=== PATIENT | female | born 1970 | race Caucasian/White ===

== ENCOUNTER 2020-10-13 19:00 | Emergency (ER) | payer OTHER, SELFPAY ==
[2020-10-13 19:02] VITALS: BP 138/71; PULSE 96; RESP 14; TEMP 36.6; O2SAT 97; BMI 33.8
[2020-10-13 19:06] VITALS: BP 138/71; PULSE 96; RESP 14; TEMP 36.6; O2SAT 97
--- NOTE | 2020-10-13 19:31 | EX.ED.GENINJ ---
HPI History of Present Illness Chief Complaint: Bite Informant: patient Narrative Narrative: Patient is a 50-year-old previously healthy female who presents to the emergency department for cat bite to her right forearm. She states that this occurred yesterday. She has noticed some erythema, warmth and tenderness to the area. She went to urgent care who referred her to the emergency department. Patient has not done anything for her symptoms to this point. She denies any systemic symptoms including any fever/chills or nausea/vomiting. No streaking up the arm. She denies any history of immunocompromise state, diabetes. She does admit to smoking cigarettes. Patient is not concerned about rabies as it is her house cat. PFSH PFSH Home Medications amoxicillin-pot clavulanate [Augmentin] 1 tab PO BID 10 Days #20 tab 10/13/20 [Rx Last Taken Unknown] Allergy/AdvReac Type Severity Reaction Status Date / Time No Known Allergies Allergy Verified 10/13/20 19:02 Social History Smoking Status: Current every day smoker tobacco type: cigarettes ROS ROS ED Constitutional Constitutional ED: Denies chills or fever(s) Eyes Eyes: Denies change in vision ENT ENT ED: Denies epistaxis or rhinorrhea Cardiovascular Cardiovascular: Denies chest pain Respiratory/Chest Respiratory/Chest: Denies cough or dyspnea Gastrointestinal Gastrointestinal: Denies abdominal pain, nausea or vomiting Musculoskeletal Musculoskeletal: Denies back pain or neck pain Integumentary Reports rash Neurologic Neurologic: Denies weakness EXAM Physical Exam Const Vital Signs: 10/13/20 19:02 10/13/20 19:06 Temperature 97.9 F 97.9 F Temperature Source Temporal Temporal Pulse Rate 96 96 Respiratory Rate 14 14 Blood Pressure 138/71 H 138/71 H Blood Pressure Mean 93 93 Pulse Ox 97 97 Oxygen Delivery Method Room Air Room Air Positive well nourished and well developed General Appearance ED: well developed and NAD HEENT Reports normocephalic, head/scalp atraumatic and moist mucous membranes Eyes PERRL and EOMs intact bilaterally Neck supple Chest Wall inspection of chest normal Resp normal respiratory effort and clear to auscultation bilaterally Auscultation: Negative for rales, rhonchi or wheezes Cardio regular rate, regular rhythm and no murmurs Extremity Extremity Narrative: Right forearm has 2 puncture wound sites. There is surrounding erythema, warmth and tenderness. No fluctuating abscess present. She has full range of motion of her elbow, wrist and hand. 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 2+ radial pulse. No underlying crepitus. No streaking up the arm. Neuro no sensory deficits noted Sensorium / Orientation: alert Motor Exam: strength 5/5 throughout Psych mental status grossly normal MDM MDM MDM Narrative Medical decision making narrative: Patient presents to the ED for cat bite that occurred yesterday. This does appear to have a surrounding infection. She was referred by urgent care thinking that this would require surgical evaluation. The area of infection is very localized. She does have some tenderness in the forearm but I believe that this is related to the puncture wound sites. She has normal vital signs. No evidence of sepsis as she is not tachycardic or have a temperature. No streaking up the arm. This does appear to be very local and no underlying abscess present. I believe that this is a good candidate for oral antibiotic therapy. Will give first dose of Augmentin here and write a prescription for home. I did make an outline around the area with marker. She understands that she is to return if there is significant spreading outside of the marker or she develops streaking, fevers. She understands and is agreeable with this plan. Will discharge home in stable condition. All questions were answered. Discharge Plan Triage Chief Complaint: Bite ED Provider: Emre Nolen Dx/Rx/DC Orders Clinical Impression: Infected cat bite Instructions: ED Cat Bite Prescriptions: New amoxicillin-pot clavulanate [Augmentin] 875-125 mg tablet 1 tab PO BID 10 Days Qty: 20 RF: 0 Activity Restrictions/Additional Instructions: Please follow-up with your PCP for wound recheck and 2 days. If you develop any significant streaking past the area marked or develop systemic symptoms including fevers or chills need to return back to the emergency department immediately for reevaluation. Disposition Disposition: Home, Self Care
[2020-10-13] MEDS: Amox/Clavulanate 875 MG Tablet PO (19:36)
== END 2020-10-13 19:47 | disposition home or self-care (01) ==
LOC: ED 19:47
PROVIDERS: Emergency Provider Emergency Medicine; PCP Family Medicine
DX: S50.871A Other superficial bite of right forearm, initial encounter (principal); W55.01XA Bitten by cat, initial encounter; Y93.9 Activity, unspecified; Y92.9 Unspecified place or not applicable; F17.210 Nicotine dependence, cigarettes, uncomplicated
CPT/HCPCS: 99282

== ENCOUNTER 2020-10-14 12:25 | Inpatient (IN) | payer OTHER, SELFPAY ==
[2020-10-13 19:02] VITALS: BMI 33.8
[2020-10-14 12:26] VITALS: BP 130/64; PULSE 91; RESP 16; TEMP 36.3; O2SAT 96; BMI 33.5
--- NOTE | 2020-10-14 12:45 | EX.ED.VISEXT ---
HPI History of Present Illness Chief Complaint: Bite Detail of Chief Complaint: Cat bite to right forearm that occurred 3 days ago Informant: patient Narrative Narrative: Patient states that she was bitten by her cat 3 days ago on the right forearm. Patient is a house cat. Patient seen in the ER yesterday and started on Augmentin. Patient had the area of erythema outlined with marker and now she is noted that the erythema is starting to extend beyond the marker and she is having some lymphangitic streaking so she presents for repeat evaluation. She denies fever, chills, or sweats. Patient is not diabetic and has no real medical issues otherwise. ROS ROS ED Constitutional Constitutional ED: Reports systems reviewed and no addt'l complaints, except as documented; Denies body ache(s), change in weight or chills Eyes Eyes: Denies acute decrease in peripheral vision, change in vision, double vision or loss of vision ENT ENT ED: Reports none; Denies ear pain, lip swelling, loss taste/smell, neck pain, otalgia or sore throat Cardiovascular Cardiovascular: Reports none; Denies abdominal pain, chest pain with activity, leg edema, lightheadedness, palpitations, rapid heart rate or syncope Respiratory/Chest Respiratory/Chest: Reports none; Denies change in mental status, dry cough, dyspnea, hemoptysis, shortness of breath at rest or shortness of breath with exertion Gastrointestinal Gastrointestinal: Reports none; Denies abdominal pain, change in stool character, diarrhea, hematemesis, hematochezia, melena, rectal bleeding or vomiting Genitourinary Genitourinary ED: Reports none; Denies abdominal discomfort, anuria, dysuria, genital pain or polyuria Musculoskeletal Musculoskeletal: Reports none; Denies arthralgias, back pain, difficulty walking, extremity pain, muscle weakness or myalgias Integumentary Reports none, rash and other Details: Right forearm erythema and small pustule on the dorsal surface of the forearm ; Denies abscess Neurologic Neurologic: Reports none; Denies abnormal gait, confusion, focal weakness, frequent falls, headache(s), loss of vision, numbness, paresthesias, radicular pain, vertigo or weakness Psychiatric Psychiatric: Reports systems reviewed and no addt'l complaints, except as documented and none; Denies behavioral changes, confusion, difficulty concentrating, hallucinations, suicidal ideation, tactile hallucinations or visual hallucinations Endocrine Endocrinology: Denies none, cold intolerance, excessive sweating, fatigue or heat intolerance Hematologic/Lymphatic Hematologic/Lymphatic: Reports none; Denies anemia, easy bleeding or easy bruising Allergic/Immunologic Allergic/Immunologic ED: Denies as per HPI, none, lip swelling, mouth swelling, throat swelling, tongue swelling or hives PFSH PFSH Home Medications amoxicillin-pot clavulanate [Augmentin] 1 tab PO BID 10 Days #20 tab 10/13/20 [Rx Last Taken Unknown] Allergy/AdvReac Type Severity Reaction Status Date / Time No Known Allergies Allergy Verified 10/13/20 19:02 Social History Smoking Status: Current every day smoker tobacco type: cigarettes EXAM Physical Exam Const Vital Signs: 10/14/20 12:26 Temperature 97.3 F L Temperature Source Temporal Pulse Rate 91 Respiratory Rate 16 Blood Pressure 130/64 H Blood Pressure Mean 86 Pulse Ox 96 Oxygen Delivery Method Room Air Positive well nourished and well developed General Appearance ED: well developed and NAD HEENT Reports TM's clear and moist mucous membranes normocephalic and atraumatic; Negative for trauma or tenderness Tympanic Membrane ED: Yes TM's clear Eyes PERRL and EOMs intact bilaterally General Eye ED: Negative for pale conjunctiva or scleral icterus Neck no lymphadenopathy, supple and no JVD General: Negative for tenderness Chest Wall inspection of chest normal and palpation of chest normal Chest: Negative for tenderness Resp normal respiratory effort and clear to auscultation bilaterally Effort and Inspection: Negative for respiratory distress or pain with movement Auscultation: Negative for rhonchi, wheezes or diminished lung sounds Cardio regular rate, regular rhythm, S1 normal heart sound, S2 normal heart sound and no murmurs Peripheral Pulses: pulses 2+ throughout GI normal to inspection, nondistended, normoactive bowel sounds, soft to palpation, non-tender, non-distended and no masses Back/Spine no CVA tenderness and no thoracic nor lumbar tenderness Extremity Extremity Narrative: Evaluate forearm reveals a puncture wound to the dorsum of the forearm and 1 to the lateral aspect of the forearm. There is surrounding diffuse erythema. Area where the skin was outlined with marker does not show that the erythema has migrated beyond the margins. But there was a small area of purulent debris noted under the skin at the puncture site over the dorsum of the forearm. Patient neurovascular tact distally. Patient has small amount of lymphangitic streaking to the volar aspect of the wrist. General Extremety ED: Yes edema General Extremity: edema Neuro oriented x3, CN's II-XII intact bilaterally, no sensory deficits noted and gait normal Sensorium / Orientation: awake, alert, oriented to person, oriented to place and oriented to time Motor Exam: strength 5/5 throughout and strength abnormal Psych mental status grossly normal Skin no rashes or lesions noted and no wounds MDM MDM MDM Narrative Medical decision making narrative: IV line will be established and patient will be started on Unasyn. Basic labs ordered. Patient case will be discussed with hospitalist evaluate for admission for IV antibiotics. Discharge Plan Dx/Rx/DC Orders Clinical Impression: Cat bite, Infected cat bite Disposition Disposition: Acute Care Hospital [facility]
--- NOTE | 2020-10-14 13:07 | HP.PCM.HOS_ITS ---
HPI - General General Date of Admission: 10/14/20 Date of Service: 10/14/20 Chief Complaint: RUE cat bite, worsening despite recent oral abx start HPI Narrative The patient is a 50 y/o F w/ PMHx: Obesity, Tobacco use, Hx EtOH sober now x 10 years who presents to the [facility] [place] ED on 10/14/20 with history of recent RUE distal volar forearm cat bite, specifically her own cat which is an indoor cat the Tuesday prior to current presentation with urgent care evaluation with at that time referral to the ED with initiation of Augmentin and cellulitic outline performed following her discharge with recommendation to return if any redness or streaking outside of that region or onset of fevers despite antibiotic therapy which unfortunately did occur with PCP evaluation on day of ED presentation currently with referral given worsened appearance. Patient notes the area is very tender, worse with palpation, tentative 10, sharp with palpation otherwise dull aching. Patient did have a small pustule and this drained minimal material when lanced by an 18-gauge needle per the ED physician upon his evaluation. In the ED patient was administered Unasyn therapy. Work- up in the ED included T 97.3, heart rate 91, BP 130/64, respiratory rate 16, 96% on room air, CBC with WC 11.9, hemoglobin 14.2, platelet 390 with left shift, BMP pending upon requested evaluation of patient. In the ED patient ministered IV Unasyn therapy. PFSH Medical History Carpal tunnel syndrome, bilateral History of ETOH abuse Obesity Tobacco use Home Medications amoxicillin-pot clavulanate [Augmentin] 1 tab PO BID 10 Days #20 tab 10/13/20 [Rx Last Taken Unknown] Allergy/AdvReac Type Severity Reaction Status Date / Time No Known Allergies Allergy Verified 10/13/20 19:02 Family History (Updated 10/14/20 @ 13:[address] Maggie Crooks MD) Mother Crohn's disease Father Colon cancer, Onset Age: 55 Diagnosed 55 years old, age 56. Surgical History (Updated 10/14/20 @ 13:[address] Maggie Crooks MD) History of hysterectomy S/p bilateral carpal tunnel release Social History (Updated 10/14/20 @ 13:[address] Maggie Crooks MD) household members: none Smoking Status: Current every day smoker tobacco type: cigarettes Smoking packs per day: 1 Smoking cigarettes per day: 20.0 Years smoked: 38 Smoking pack-years: 38.00 alcohol intake: former details: Patient with EtOH abuse history, sober now x 10 years. substance use type: does not use ROS ROS Narrative Admission Review of Systems: CONSTITUTIONAL: No weight loss, fever, chills, + weakness or fatigue. HEENT: Eyes: No visual loss, blurred vision, double vision or yellow sclerae. Ears, Nose, Throat: No hearing loss, sneezing, congestion, runny nose or sore throat. SKIN: + RUE w/ cellulitis, cat bite. CARDIOVASCULAR: No chest pain, chest pressure or chest discomfort, palpitations, edema, orthopnea, syncopal events. RESPIRATORY: No shortness of breath, cough or sputum, wheezing, hemoptysis. GASTROINTESTINAL: No anorexia, nausea, vomiting or diarrhea, abdominal pain, melena, BRBPR. GENITOURINARY: No dysuria, frequency, urgency or retention. NEUROLOGICAL: No headache, dizziness, syncope, paralysis, ataxia, numbness or tingling in the extremities, focal weakness, change in bowel or bladder control, seizure. MUSCULOSKELETAL: + muscle, back pain, joint pain or stiffness. HEMATOLOGIC: No anemia, bleeding or bruising. LYMPHATICS: No enlarged nodes. No history of splenectomy. PSYCHIATRIC: No history of depression or anxiety. ENDOCRINOLOGIC: No reports of sweating, cold or heat intolerance. No polyuria or polydipsia. ALLERGIES: No history of asthma, hives, eczema or rhinitis. Vital Signs Vital Signs Vital Signs: 10/14/20 12:26 Temperature 97.3 F L Temperature Source Temporal Pulse Rate 91 Respiratory Rate 16 Blood Pressure 130/64 H Blood Pressure Mean 86 Pulse Ox 96 Oxygen Delivery Method Room Air Weight Weight: 234 lb Body Mass Index (BMI) 33.5 Physical Exam Narrative Physical Examination: General: Awake, alert, oriented x 3 and cooperative, seated upright in the ED bed in no apparent distress, notable discomfort with palpation RUE. Skin: Normal color, normal turgor, no icterus, no cyanosis except two evidence RUE volar forearm puncture castillo, some fluctuance, no drainage, very TTP. HEENT: AT/NC, EOMI, PERRLA, MMM, no carotid bruits or JVD noted. Lungs: CTA bilaterally, moderate effort, mild decrease BL bases, no rales, ronchi or wheezing. Heart: Regular rate and rhythm; no gallop, rub audible. Abdomen: Soft, obese, NTTP, ND, normal BS, no HSM. Extremities: No cyanosis, clubbing, or edema except focal region, RUE wrist near the bite, see skin. Neurological: Patient awake, alert, oriented as noted, cognitive function intact; pupils equally reactive to light and accommodation, cranial nerves II-XI I grossly normal, moving all 4 extremities although limited RUE given pain with movement, no focal deficits, strength preserved except reduced RUE secondary to acute pain, infection. Psychiatric: Affect appears fatigued, tearful when she is being admitted as she had planned to fly to [place] on to help her daughter, no history of depressive or anxiety feelings. Results Lab / Micro Data Result Diagrams: 10/14/20 13:14 10/14/20 13:14 Assessment & Plan Assessment/Plan (1) Infected cat bite: QUALIFIERS: Encounter type: subsequent encounter Qualified Code(s): W55.01XD - Bitten by cat, subsequent encounter PLAN: The patient is a 50 y/o F w/ PMHx: Obesity, Tobacco use, Hx EtOH sob er now x 10 years who presents to the [facility] [place] ED on 10/14/20 with history of recent RUE distal volar forearm cat bite, specifically her own cat which is an indoor cat the Tuesday prior to current presentation with urgent care evaluation with at that time referral to the ED with initiation of Augmentin and cellulitic outline performed following her discharge which unfortunately worsened prompting return. 1. RUE Infected Cat Bite with resulting Extremity Cellulitis, concern for developing abscess: Will admit to [facility], maintain on IV Unasyn, will obtain Wound Cx, will obtain Wound MRSA PCR if onset notable drainage, currently stopped after ED evaluation but some concern for coalescent regions, plan repeat CBC in AM, continue affected extremity elevation above heart when seated and in bed, monitor erythema outline with VS checks, wound RN consultation, dressing changes and given concerns will request plastic surgery consultation with potentially imaging pending discussion with her service. 2. History of prior alcohol abuse: Patient with history of alcohol abuse, sober [id number], encouraged continued sobriety. 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 3. Tobacco Abuse: Encouraged cessation, inpatient consultation per RT, NR if desired. 4. Obesity: Weight loss and lifestyle changes encouraged. 5. DVT prophylaxis: SCDs, Lovenox. Charges/Coding Visit Charges Inpatient E&M: 74001 Init Hosp L3
[2020-10-14 13:23] LABS: Absolute Neutrophil Count 7.9 X10^3/uL (2.0-7.7); Basophil# 0.05 X10^3/uL; Basophil% 0.4 % (0-1); Eosinophil# 0.22 X10^3/uL; Eosinophils% 1.9 % (0-5); Hematocrit 44.1 % (37-47); Hemoglobin 14.2 g/dL (12.0-15.0); Lymphocyte % 22.7 % (19-41); Mean Corp Hgb Conc 32.2 g/dL (32-36); Mean Corpuscular Hgb 28.1 pg (27.0-32.0); Mean Corpuscular Volume 87.2 fL (81-99); Mean Platelet Vol. 8.9 fl (6.2-12.0); Monocyte# 0.91 X10^3/uL; Monocyte% 7.7 % (0-10); NRBC Flagged by Analyzer 0 % (0-5); Neutrophil # 7.91 X10^3/uL (2.7-7.7); Neutrophil % 66.6 % (47-70); Platelet Count 390 K/mm3 (150-450); RBC Distribution Width CV 13.9 % (11.6-14.6); RBC Distribution Width SD 43.5 fl (35.1-43.9); Red Blood Count 5.06 M/mm3 (4.2-5.4); White Blood Count 11.9 K/mm3 (4.4-11.0)
[2020-10-14 13:25] VITALS: BP 130/64; PULSE 91; RESP 16; TEMP 36.3; O2SAT 96
[2020-10-14 13:32] LABS: Anion Gap 2 (5-15); BUN 12 mg/dL (7-18); BUN/Creat Ratio 11.1 RATIO (10-20); Calcium,Total 9.2 mg/dL (8.5-10.1); Chloride 107 mmol/L (98-107); Creatinine, Serum 1.08 mg/dL (0.55-1.02); EST Glomerular Filtration Rate 57 mL/min (>60); Est Glom Filt Rate - Afr Amer 69 mL/min (>60); Estimated Creatinine Clearance 66.64 ml/min; Glucose 108 mg/dL (74-106); Potassium 4.2 mmol/L (3.5-5.1); Sodium Level 139 mmol/L (136-145)
[2020-10-14 14:27] VITALS: RESP 18; BMI 33.5
[2020-10-14] MEDS: 0.9% Normal Saline 1,000 ML 100 ML IV (14:49)
[2020-10-14 14:59] LABS: M R Staph aureus DNA By PCR Negative (Negative); Probe Check PASS; Specimen Processing Control PASS; Staph aureus DNA By PCR NEGATIVE (Negative)
[2020-10-14 15:03] VITALS: BP 125/71; PULSE 79; RESP 18; TEMP 36.9; O2SAT 100
[2020-10-14 17:26] VITALS: O2SAT 94
--- NOTE | 2020-10-14 17:44 | CON.PCM_ITS ---
Assessment & Plan Assessment/Plan (1) Cat bite: (2) Open wound of right forearm due to cat bite: (3) Abscess of forearm, right: (4) Smoker: PLAN: Patient has a cat bite that failed outpatient therapy with po Augmentin. She was admitted and started on Unasyn. Will continue that. Despite the IV antibiotics, the redness has lessened but is persistent. The cat bite puncture wounds are quite tender. Recommend operative intervention with surgical preparation dorsal radial aspect and dorsal ulnar aspect mid right forearm with incision and drainage and excisional debridement of the cat bite wound infection abscess. Tissue will be sent to Pathology for analysis to rule out carcinoma and to Microbiology for culture. A positive culture belinda necessitate antibiotic therapy. Wound care will be with the VAC or with daily Dakin's dressing changes. Surgery will be under general anesthesia and tourniquet control. Will plan on Surgery for tomorrow. After discharge, will followup at the [facility]. If there is a plateau in the healing process, can proceed with delayed closure with skin grafting. Patient was informed of the risks and complications of the procedure including alternatives to surgery. These were discussed with the patient personally. Patient voices understanding and wishes to proceed. Some of the risks and complications that were discussed included but were not inclusive of failure to diagnose including symptom relief, pain, infection, numbness, stiffness, loss of digit, RSD (CRPS), need for further surgery, contracture, and wound healing problems. Encouraged patient to stop smoking as it may have deleterious effects on wound healing. After surgery, will encourage range of motion exercises to minimize stiffness. If stiffness develops, will set her up with OT for range of motion exercises, strengthening, and edema management. We discussed the current risks associated with COVID-19. While it is understood that there is a community spread of COVID-19, the risk of es COVID-19 while at [facility] ([facility]) is very low; however, the risk cannot be completely mitigated because of the community spread of the disease. We discussed in detail the risk of exposure to and/or potential harm posed by the COVID-19 virus with having a surgery/procedure at this time versus the risk of delaying the surgery/procedure. It is not possible to know either the risk of delaying the surgery or procedure or chance of getting an infection with perfect accuracy, but a joint decision was made to proceed at this time with the scheduled surgery/procedure as indicated on the consent form. Patient was notified that we will need to comply with any screening or testing [facility] wishes to perform or that surgery may be delayed for any positive results. HPI Consult Data Date of Consult: 10/16/20 PCP / Referring MD: Dr. Ruben Vasques MD Attending Care Provider: Dr. Maggie Crooks MD SOCIAL WELFARE RESEARCH WORKER: Dr. Herrera. HPI Narrative Reason for Consultation: cat bite wound infection dorsum right forearm. HPI Narrative: The patient is a 50 year old woman who was admitted for a worsening cat bite right forearm that she sustained on 10/12/20. It is her own cat which is an indoor cat. Initially she went to Urgent Care and Augmentin was prescribed. She noticed increasing pain, and redness, and swelling over the next 24 hours which prompted her visit to the ED for failed outpatient therapy. She was admitted and started on Unasyn. Her WBC was 11.9. She has persistent pain and redness over the cat bite wounds (dorsal radial aspect and dorsal ulnar aspect mid right forearm), and I was asked to evaluate this patient for surgical options for treatment. [facility] Medical History Abscess of forearm, right Carpal tunnel syndrome, bilateral Cat bite Extensor tenosynovitis of right wrist History of ETOH abuse Obesity Open wound of right forearm due to cat bite Tobacco use Home Medications amoxicillin-pot clavulanate [Augmentin] 1 tab PO BID 10 Days #20 tab 10/13/20 [Rx Last Taken Unknown] Allergy/AdvReac Type Severity Reaction Status Date / Time No Known Allergies Allergy Verified 10/13/20 19:02 Family History (Updated 10/14/20 @ 13:[address] Maggie Crooks MD) Mother Crohn's disease Father Colon cancer, Onset Age: 55 Diagnosed 55 years old, age 56. Surgical History History of hysterectomy S/p bilateral carpal tunnel release Social History (Updated 10/14/20 @ 13:[address] Maggie Crooks MD) household members: none Smoking Status: Current every day smoker tobacco type: cigarettes Smoking packs per day: 1 Smoking cigarettes per day: 20.0 Years smoked: 38 Smoking pack-years: 38.00 alcohol intake: former details: Patient with EtOH abuse history, sober now x 10 years. substance use type: does not use ROS ROS Narrative CONSTITUTIONAL: No weight loss, fever, chills, + weakness or fatigue. HEENT: Eyes: No visual loss, blurred vision, double vision or yellow sclerae. Ears, Nose, Throat: No hearing loss, sneezing, congestion, runny nose or sore throat. SKIN: + RUE w/ cellulitis, cat bite. CARDIOVASCULAR: No chest pain, chest pressure or chest discomfort, palpitations, edema, orthopnea, syncopal events. RESPIRATORY: No shortness of breath, cough or sputum, wheezing, hemoptysis. GASTROINTESTINAL: No anorexia, nausea, vomiting or diarrhea, abdominal pain, melena, BRBPR. GENITOURINARY: No dysuria, frequency, urgency or retention. NEUROLOGICAL: No headache, dizziness, syncope, paralysis, ataxia, numbness or tingling in the extremities, focal weakness, change in bowel or bladder control, seizure. MUSCULOSKELETAL: + muscle, back pain, joint pain or stiffness. HEMATOLOGIC: No anemia, bleeding or bruising. LYMPHATICS: No enlarged nodes. No history of splenectomy. PSYCHIATRIC: No history of depression or anxiety. ENDOCRINOLOGIC: No reports of sweating, cold or heat intolerance. No polyuria or polydipsia. ALLERGIES: No history of asthma, hives, eczema or rhinitis. Physical Exam Narrative General: Awake, alert. Skin: Normal color, normal turgor, no icterus, no cyanosis except two evidence RUE volar forearm puncture castillo, some fluctuance, no drainage, very TTP. HEENT: EOMI, PERRLA. Lungs: Clear to auscultation. Heart: Regular rate and rhythm. Abdomen: Soft, nondistended Extremities: No clubbing or cyanosis. There is mild edema noted on right forearm. There are two cat bite puncture wounds on the dorsal radial aspect and dorsal ulnar aspect mid right forearm. There is tenderness to palpation around the cat bite wounds and there is surrounding redness. No purulent drainage no praneeth. Fingers are warm with good capillary refill. Radial pulses are palpable. No axillary adenopathy. Tenderness with thumb abduction and extension. Opposition is ok. Extension of fingers against resistance intact. Mild tenderness noted. Minimal wrist dorsiflexion. Neurological: Cranial nerves II-XII grossly normal. Psychiatric: Affect appears fatigued, tearful when she is being admitted as she had planned to fly to [place] on to help her daughter, no history of depressive or anxiety feelings. Lab / Micro Data Result Diagrams: 10/16/20 05:25 10/16/20 05:25 Labs: Laboratory Results - last 24 hr 10/14/20 13:14: WBC 11.9 H, RBC 5.06, Hgb 14.2, Hct 44.1, MCV 87.2, MCH 28.1, MCHC 32.2, RDW Std Deviation 43.5, RDW Coeff of Winnie 13.9, Plt Count 390, MPV 8.9, Immature Gran % (Auto) 0.700, Neut % (Auto) 66.6, Lymph % (Auto) 22.7, Wright % (Auto) 7.7, Eos % (Auto) 1.9, Baso % (Auto) 0.4, Absolute Neuts (auto) 7.9 H, Absolute Lymphs (auto) 2.70, Nucleated RBC % 0 10/14/20 13:14: Sodium 139, Potassium 4.2, Chloride 107, Carbon Dioxide 30.0, Anion Gap 2 L, BUN 12, Creatinine 1.08 H, Estim Creat Clear Calc 66.64, Est GFR (MDRD) Af Amer 69, Est GFR (MDRD) Non-Af 57 L, BUN/Creatinine Ratio 11.1, Glucose 108 H, Calcium 9.2 10/14/20 13:38: S.aureus Protein A PCR NEGATIVE, MRSA (PCR) Negative Micro: Microbiology 10/14/20 13:38 Bite, Cat Gram Stain - Final Procedure Criteria Type of Procedure Procedure Type: Elective Elective Risks - COVID COVID Risk Discussion: The surgeon/proceduralist and patient have discussed in detail the risk of exposure to and/or potential harm posed by the COVID-19 virus with having a surgery/procedure at this time versus the risk of delaying the surgery/procedure. It is not possible to know either the risk of delaying the surgery or procedure or chance of getting an infection with perfect accuracy, but a joint decision was made between the patient and the surgeon/proceduralist to proceed at this time with the scheduled surgery/procedure as indicated on the consent form. Charges/Coding Visit Charges Inpatient E&M: 91039 Init Hosp L2 (ICD-10 - W55.01xA, S51.851A, L02.413, F17.200)
[2020-10-14 21:00] VITALS: BP 121/68; PULSE 89; RESP 18; TEMP 36.9; O2SAT 94
[2020-10-15] VITALS (17 sets, daily range): BP systolic 93–135; BP diastolic 51–92; PULSE 68–96; RESP 16–18; TEMP 36.6–37.4; O2SAT 85–100; BMI 33.6
[2020-10-15] MEDS: 0.9% Normal Saline 1,000 ML 100 ML IV ×3 (01:45→18:19)
[2020-10-15 06:07] LABS: Absolute Lymphocyte Count 3.45 X10^3/uL (0.83-4.51); Absolute Neutrophil Count 4.6 X10^3/uL (2.0-7.7); Basophil% 1.1 % (0-1); Eosinophils% 3.2 % (0-5); Hematocrit 45.6 % (37-47); Hemoglobin 13.4 g/dL (12.0-15.0); Lymphocyte # 3.45 X10^3/ul (0.83-4.51); Lymphocyte % 36.5 % (19-41); Mean Corp Hgb Conc 29.4 g/dL (32-36); Mean Corpuscular Hgb 28.2 pg (27.0-32.0); Mean Corpuscular Volume 95.8 fL (81-99); Mean Platelet Vol. 8.9 fl (6.2-12.0); Monocyte# 0.93 X10^3/uL; Monocyte% 9.8 % (0-10); NRBC Flagged by Analyzer 0 % (0-5); Neutrophil # 4.61 X10^3/uL (2.7-7.7); Neutrophil % 48.7 % (47-70); Platelet Count 296 K/mm3 (150-450); RBC Distribution Width CV 13.9 % (11.6-14.6); RBC Distribution Width SD 49.1 fl (35.1-43.9); Red Blood Count 4.76 M/mm3 (4.2-5.4); White Blood Count 9.5 K/mm3 (4.4-11.0)
--- NOTE | 2020-10-15 06:20 | PCM.PN.HOSP ---
Subjective Subjective Patient with no acute events overnight per self and per nursing report. She does have ongoing tenderness to the right forearm region and although the cellulitic outlined region has lessened and improved in appearance she still does have some streaking and some focal fluctuant regions at the focal bite castillo. Patient was evaluated by plastic surgery the day prior and did discuss patient status this a.m. with planned reevaluation and possible or needs today. Discussed this with patient and she was transitioned n.p.o. status to be cautious. Patient denies fevers, chills, nausea, emesis, abdominal pain, chest pain or dyspnea. Objective Data Objective Data Vital Signs: Vital Signs Temp Pulse Resp BP Pulse Ox 97.8 F 73 16 93/68 96 10/15/20 05:00 10/15/20 05:00 10/15/20 05:00 10/15/20 05:00 10/15/20 05:00 Oxygen Delivery Method Room Air Weight: 234 lb Body Mass Index (BMI) 33.5 Intake & Output: Intake and Output for Last 24 Hours 10/13/20 10/14/20 10/15/20 23:59 23:59 23:59 Intake Total 1382.33 / 1382.33 965.67 / 965.67 Balance 1382.33 / 1382.33 965.67 / 965.67 Lab / Micro Data Result Diagrams: 10/15/20 05:40 10/15/20 05:40 Labs: Laboratory Results - last 24 hr 10/14/20 13:14: WBC 11.9 H, RBC 5.06, Hgb 14.2, Hct 44.1, MCV 87.2, MCH 28.1, MCHC 32.2, RDW Std Deviation 43.5, RDW Coeff of Winnie 13.9, Plt Count 390, MPV 8.9, Immature Gran % (Auto) 0.700, Neut % (Auto) 66.6, Lymph % (Auto) 22.7, Inyo % (Auto) 7.7, Eos % (Auto) 1.9, Baso % (Auto) 0.4, Absolute Neuts (auto) 7.9 H, Absolute Lymphs (auto) 2.70, Nucleated RBC % 0 10/14/20 13:14: Sodium 139, Potassium 4.2, Chloride 107, Carbon Dioxide 30.0, Anion Gap 2 L, BUN 12, Creatinine 1.08 H, Estim Creat Clear Calc 66.64, Est GFR (MDRD) Af Amer 69, Est GFR (MDRD) Non-Af 57 L, BUN/Creatinine Ratio 11.1, Glucose 108 H, Calcium 9.2 10/14/20 13:38: S.aureus Protein A PCR NEGATIVE, MRSA (PCR) Negative 10/15/20 05:40: WBC 9.5, RBC 4.76, Hgb 13.4, Hct 45.6, MCV 95.8 D, MCH 28.2, MCHC 29.4 L D, RDW Std Deviation 49.1 H, RDW Coeff of Winnie 13.9, Plt Count 296, MPV 8.9, Immature Gran % (Auto) 0.700, Neut % (Auto) 48.7, Lymph % (Auto) 36.5, Inyo % (Auto) 9.8, Eos % (Auto) 3.2, Baso % (Auto) 1.1 H, Absolute Neuts (auto) 4.6, Absolute Lymphs (auto) 3.45, Nucleated RBC % 0 Micro: Microbiology 10/14/20 13:38 Bite, Cat Gram Stain - Final Physical Exam Narrative Physical Examination: General: Awake, alert, oriented x 3 and cooperative, seated upright in the MS bed, uncomfortable with any movement or palpation to the right upper extremity. Skin: Normal color, normal turgor, no icterus, no cyanosis except two evidence RUE volar forearm puncture castillo, increased induration and fluctuance at these regions, but no drainage, cellulitis in the outlined region has lessened but still some streaking, ongoing severe tenderness to palpation. HEENT: AT/NC, EOMI, PERRLA, mildly dry MM. Lungs: CTA bilaterally, moderate effort, mild decrease BL bases, no rales, ronchi or wheezing. Heart: Regular rate and rhythm; no gallop, rub audible. Abdomen: Soft, obese, NTTP, ND, normal BS. Extremities: No cyanosis, clubbing, or edema except focal region, RUE wrist near the bite, see skin. Neurological: Patient awake, alert, oriented as noted, cognitive function intact; pupils equally reactive to light and accommodation, cranial nerves II-XII grossly normal, moving all 4 extremities although limited RUE given pain with movement, no focal deficits, strength preserved except reduced RUE secondary to acute pain, infection. Psychiatric: Affect appears fatigued, no apparent depressive or anxiety feelings. Assessment & Plan Assessment/Plan (1) Infected cat bite: QUALIFIERS: Encounter type: subsequent encounter Qualified Code(s): W55.01XD - Bitten by cat, subsequent encounter PLAN: The patient is a 50 y/o F w/ PMHx: Obesity, Tobacco use, Hx EtOH sober now x 10 years who presents to the [facility] ED on 10/14/20 with history of recent RUE distal volar forearm cat bite, specifically her own cat which is an indoor cat the Tuesday prior to current presentation with urgent care evaluation with at that time referral to the ED with initiation of Augmentin and cellulitic outline performed following her discharge which unfortunately worsened prompting return. 1. RUE Infected Cat Bite with resulting Extremity Cellulitis, concern for developing abscess: Patient admitted to the medical surgical floor, maintained on IV Unasyn, will continue right upper extremity elevation above heart, erythema has been lessening but streaking noted and coalescing regions therefore plastic surgery consulted and following, possible 10/15/2020 OR, currently n.p.o. status, continue judicious IV fluids, as needed oral and IV pain regimen as well as antiemetics as needed. High suspicion that patient will need to progress to OR today. 2. History of prior alcohol abuse: Patient with history of alcohol abuse, sober [id number], encouraged continued sobriety. 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 3. Tobacco Abuse: Encouraged cessation, inpatient consultation per RT, NR if desired. 4. Obesity: Weight loss and lifestyle changes encouraged. 5. DVT prophylaxis: SCDs, Lovenox. Charges/Coding Visit Charges Inpatient E&M: 46646 Subs Hosp L2
[2020-10-15 07:01] LABS: ALB/GLOB Ratio 0.8 RATIO (0.9-2.4); AST(SGOT) 15 U/L (15-37); Alanine Aminotransfer ALT/SGPT 21 U/L (13-56); Albumin, Serum 3.1 g/dL (3.2-5.0); Alkaline Phosphatase 101 U/L (45-117); Anion Gap 7 (5-15); BUN 11 mg/dL (7-18); BUN/Creat Ratio 12.4 RATIO (10-20); Calcium,Total 8.5 mg/dL (8.5-10.1); Chloride 112 mmol/L (98-107); Creatinine, Serum 0.89 mg/dL (0.55-1.02); EST Glomerular Filtration Rate 71 mL/min (>60); Est Glom Filt Rate - Afr Amer 86 mL/min (>60); Estimated Creatinine Clearance 80.87 ml/min; Globulin 3.8 g/dL (2.2-4.2); Glucose 84 mg/dL (74-106); Potassium 4.1 mmol/L (3.5-5.1); Protein, Total 6.9 g/dL (6.4-8.2); Sodium Level 138 mmol/L (136-145)
--- NOTE | 2020-10-15 09:34 | EKG12_ITS ---
Test Reason : PRE OP Blood Pressure : / mmHG Vent. Rate : 073 BPM Atrial Rate : 073 BPM P-R Int : 148 ms QRS Dur : 076 ms QT Int : 388 ms P-R-T Axes : 036 042 024 degrees QTc Int : 427 ms Normal sinus rhythm Low voltage QRS Borderline ECG When compared with ECG of 16-MAY-2012 09:05, No significant change was found Confirmed by NIKKI MORRIS, RU ([id number]), state editor BERNARDA EDWARDS ([id number]) on 10/20/2020 11:55:39 AM Referred By: GÉNESIS Confirmed By:RU JORDAN MD
--- NOTE | 2020-10-15 10:10 | CASEMGMT ---
RN MAMADOU SECONDARY ENGLISH TEACHER CM to room to meet with patient for initial transition planning/care coordination assessment. RN MAMADOU introduced self and role at [facility]. Pt voices understanding and consents to assessment at this time. Pt sitting up in bed in no distress at this time. Pt is A/O at this time and answers all questions appropriately. Care providers, pharmacy, and demographics verified/updated at this time. PCP: Dr Vasques Specialists: none Preferred Pharmacy: [facility] Insurance: MMO Prescription Benefit: Yes Living Will/HPOA: Pt does not currently have LW/HCPOA and declines info at this time. Pt made aware that she can contact SW as an out-pt and make appt in the future if she decides he would like to talk with someone about this or would like to utilize [facility] social work for advanced directive completion. Given [employer] card with information and contact number. Pt expresses understanding. LNOK: SisterMary Carmen. 2 adult children Living Arrangements: Lives alone. Independent. Sister and other family live nearby and able to help if needed. She states they would be able to assist w/dressing changes if needed. Transportation: Pt states drives self and states no transportation concerns at this time. DME: Denies using any DME and denies needs. HHC/SNF: No history of either. No needs identified. Pt wishes to return home and states has no concerns with going home at time of discharge. CM to follow for any discharge planning/needs. Pt voices no concerns/needs at this time. Advised pt to ask for CM if any questions/concerns/needs arise. Voices understanding. PLAN: Home w/family support and discharge plans in place. Jono NOEL RN, CM
--- NOTE | 2020-10-15 11:25 | DEB_PTH ---
PATIENT: MADELAINE ALBERTO LOC: MS3 U#:[id number] AGE/SX: 50/F [place]OM[place] [facility] RE10/14/[address]: Dr. Maggie Crooks MD : 1970 BED: 1 DIS: 10/17/2020 SPEC #: [id number] RECD: 10/15/20 14:25 STATUS: ISABEL RE #: [id number] MARYBETH: 10/15/20 11:[address]: Wang Herrera DEPT: SURGICAL PATHOLOGY RECD BY: Jessica Manning ENTERED: 10/16/20 08:23 SP TYPE: SNOW TISS OTHR DR: MD Dr. Wang Galvan MD Dr. William Lago, MD Tissues: Soft tissues, NOS Procedures: Surgery Specimen Level III Comments: @ Ordering doctor for SUIII edited from to @ by RGOOD at 10/16/20 0941 @ Submitting doctor edited from to @ by RGOOD at 10/16/20 0941 HEADER OPERATION: Incision, drainage cat bite, forearm PRE-OP DIAGNOSIS: Infected cat bite TISSUE SUBMITTED: Debrided tissue right forearm cat bite MICROSCOPIC DIAGNOSIS Skin and soft tissue of right forearm, biopsy: Ulceration with associated acute and chronic inflammation and granulation. Microabscess formation. AM:hemant 10/17/2020 MICROSCOPIC DESCRIPTION Slides are reviewed. GROSS DESCRIPTION Received in fixative is one container labeled with the patient's name and designated debrided tissue right forearm, cat bite. The specimen consists of two pieces of skin with underlying tissue that in aggregate measure 2 x 1.5 x 0.5 cm. Also present in the container are two detached pieces of griffin-yellow adipose tissue measuring in aggregate 1 x 0.5 x 0.2 cm. The larger skin piece is bisected. The entire specimen is submitted in one cassette. / SJ:hemant 10/16/20 TC:2 CPT: 70613
[2020-10-15] MEDS: Lidocaine 1%/Epi 1:200 (30ml) 30 ML AMPUL (13:04)
--- NOTE | 2020-10-15 13:46 | OP.PCM_ITS ---
Problems Associated Problem List Diagnoses (1) Cat bite: (2) Open wound of right forearm due to cat bite: (3) Abscess of forearm, right: (4) Extensor tenosynovitis of right wrist: (5) Smoker: Report of Operation Date of Procedure: 10/15/20 Pre-Operative Diagnosis: 1. Cat bite wound infection abscess dorsal radial aspect and dorsal ulnar aspect mid right forearm. 2. Smoker. Post-Operative Diagnosis: 1. Cat bite wound infection abscess dorsal radial aspect and dorsal ulnar aspect mid right forearm. 2. Extensor tenosynovitis compartment I distal right forearm at wrist (abductor pollicis longus tendon and extensor pollicis brevis tendon). 23Smoker. Surgery/Procedure Performed:: 1. Surgical preparation dorsal radial aspect and dorsal ulnar aspect mid right forearm with incision and drainage and excisional debridement cat bite wounds infection abscess. 2. Extensor tenosynovectomy for tenosynovitis compartment I distal right forearm at wrist (abductor pollicis longus tendon and extensor pollicis brevis tendon). Description of Surgical Findings:: The patient is a 50 year old woman who was admitted for a worsening cat bite right forearm that she sustained on 10/12/20. It is her own cat which is an indoor cat. Initially she went to Urgent Care and Augmentin was prescribed. She noticed increasing pain, and redness, and swelling over the next 24 hours which prompted her visit to the ED for failed outpatient therapy. She was admitted and started on Unasyn. Her WBC was 11.9. She has persistent pain and redness over the cat bite wounds (dorsal radial aspect and dorsal ulnar aspect mid right forearm), and I was asked to evaluate this patient for surgical options for treatment. Patient was informed of the risks and complications of the procedure including alternatives to surgery. These were discussed with the patient personally. Patient voices understanding and wishes to proceed. Some of the risks and complications that were discussed included but were not inclusive of failure to diagnose including symptom relief, pain, infection, numbness, stiffness, loss of digit, RSD (CRPS), need for further surgery, contracture, and wound healing problems. Encouraged patient to stop smoking as it may have deleterious effects on wound healing. Total tourniquet time - 29 minutes. Size of defect dorsal ulnar aspect right forearm - 2.5 x 1.5 x 1 cm. Size of defect dorsal radial aspect right forearm - 3 x 2 x 1 cm. Compartment II (extensor carpi radialis longus tendon and extensor carpi radialis brevis tendon) was ok. Compartment V (extensor digiti minimi tendon) was ok. Surgeon: Wang Herrera director special education: None Type of Anesthesia: General Specimen's removed: Cat bite wound abscess to Pathology and Microbiology. Drains: None. Estimated Blood Loss (mL): 5 ml. Description of Procedure: Patient was taken to OR in supine position and was placed under general anesthesia. The right upper extremity was prepped and draped in the usual fashion. A tourniquet was placed on the arm. SCD's were placed for DVT prophylaxis. Perioperative antibiotics were given intravenously. Using xylocaine with epinephrine, the cat bite wounds (dorsal radial aspect and dorsal ulnar aspect mid right forearm) were infiltrated for postoperative pain relief. I elevated the right upper extremity and loosely compressed it with a towel as the tourniquet was elevated to 250 mmHg. I didn't use an Esmarch bandage because of concern about spreading the infection. I proceeded with an incision and drainage around both cat bite wounds. A lot of fat necrosis was seen in the wounds. Small amount of pus was seen. The wound extended down to the tendons. The radial wound extended down to compartment I involving the abductor pollicis longus tendon and the extensor pollicis brevis tendon. There was tenosynovitis present involving compartment I. Exudate was also present. I extended the incision distally to get exposure to the tendon sheath at the wrist. I irrigated copiously until clear drainage was expressed. No pus was seen in the tendon sheath. It was more of an inflammatory tenosynovitis. An extensor tenosynovectomy was performed. The underlying wrist extensors in compartment II (extensor carpi radialis longus tendon and extensor carpi radialis brevis tendon) appeared ok without evidence of infection. The ulnar wound extended down to compartment V involving the extensor digiti minimi tendon. It appeared ok without evidence of infection. The wounds were copiously irrigated with saline. The tissue that was excised and debrided was sent to Pathology for analysis and to Microbiology for culture. A positive culture will necessitate antibiotic therapy. The tourniquet was released after 29 minutes. Hemostasis was obtained with electrocautery. The size of the radial defect was 3 x 2 x 1 cm. The size of the ulnar defect was 2.56 x 1.5 x 1 cm. The wounds were dressed with Mepitel nonadherent dressing followed by Kerlix gauze and Betadine followed by dry Kerlix gauze and a compression JAMES wrap. Patient tolerated the procedure well and was sent to PACU in satisfactory condition. Patient will be sent upstairs for continued postop care. The VAC will be applied tomorrow. After discharge, will followup at the Wound Center. If there is a plateau in the healing process, can proceed with delayed closure with skin grafting. Encourage range of motion exercises to minimize stiffness. If stiffness develops, will set her up with OT for range of motion exercises, strengthening, and edema management. Grafts/Implants Used: None. Complications None. Admit VTE Documentation VTE Present on Admission: No VTE Mechan Device Prophylaxis: SCD's VTE Pharm Prophylaxis ordered?: Yes Addendum Addendum: Surgery Charges CPT - 44534 ICD-10 - S51.851A, W55.01xA, L02.413, M65.831, F17.200 77345 W55.01xA, L02.413, S51.851A, M65.831, F17.200 38220 W55.01xA, M65.831, L02.413, S51.851A, F17.200
[2020-10-15] MEDS: Lactated Ringers 1,000 ML 100 ML IV (14:01)
[2020-10-15] MEDS: Acetaminophen 325 MG Tablet 650 MG PO ×2 (18:18→22:21)
[2020-10-16] VITALS (7 sets, daily range): BP systolic 99–141; BP diastolic 49–83; PULSE 60–89; RESP 16; TEMP 36.6–37.3; O2SAT 92–94
[2020-10-16] MEDS: oxyCODONE 5 MG Tablet PO ×4 (02:30→21:31)
[2020-10-16] MEDS: guaiFENesin 10 ML UDC (200MG/10ML) 20 ML PO (02:31)
[2020-10-16] MEDS: 0.9% Normal Saline 1,000 ML 100 ML IV ×2 (05:26→17:01)
[2020-10-16] MEDS: Acetaminophen 325 MG Tablet 650 MG PO ×2 (05:29→21:32)
[2020-10-16 05:57] LABS: Absolute Lymphocyte Count 2.23 X10^3/uL (0.83-4.51); Absolute Neutrophil Count 8.1 X10^3/uL (2.0-7.7); Basophil# 0.05 X10^3/uL; Basophil% 0.4 % (0-1); Eosinophil# 0.18 X10^3/uL; Eosinophils% 1.6 % (0-5); Hematocrit 43.1 % (37-47); Lymphocyte # 2.23 X10^3/ul (0.83-4.51); Lymphocyte % 19.8 % (19-41); Mean Corp Hgb Conc 30.2 g/dL (32-36); Mean Corpuscular Hgb 27.8 pg (27.0-32.0); Mean Corpuscular Volume 92.1 fL (81-99); Mean Platelet Vol. 9.5 fl (6.2-12.0); Monocyte# 0.65 X10^3/uL; Monocyte% 5.8 % (0-10); NRBC Flagged by Analyzer 0 % (0-5); Neutrophil # 8.07 X10^3/uL (2.7-7.7); Neutrophil % 71.9 % (47-70); Platelet Count 305 K/mm3 (150-450); RBC Distribution Width CV 14.1 % (11.6-14.6); RBC Distribution Width SD 47.8 fl (35.1-43.9); Red Blood Count 4.68 M/mm3 (4.2-5.4); White Blood Count 11.2 K/mm3 (4.4-11.0)
--- NOTE | 2020-10-16 06:19 | PN.HOSP_ITS ---
Subjective Subjective Patient overnight with continued discomfort with palpation and certain movements status post OR the day prior. She does still appear to be depressed and upset at being unable to visit with her daughter as she would have flown to [place] today. Patient understands need for continued wound care including placement of VAC today and ongoing antibiotic therapy. Patient denies fevers, chills, nausea, emesis, abdominal pain, chest pain or dyspnea. Objective Data Objective Data Vital Signs: Vital Signs Temp Pulse Resp BP Pulse Ox 98.1 F 79 16 129/67 H 94 10/16/20 02:30 10/16/20 02:30 10/16/20 02:30 10/16/20 02:30 10/16/20 02:30 Oxygen Flow Rate (L/min) 2 Oxygen Delivery Method Room Air Weight: 234 lb 5.622 oz Body Mass Index (BMI) 33.6 Intake & Output: Intake and Output for Last 24 Hours 10/14/20 10/15/20 10/16/20 23:59 23:59 23:59 Intake Total 1382.33 / 1382.33 3516.33 / 3516.33 1113.67 / 1113.67 Balance 1382.33 / 1382.33 3516.33 / 3516.33 1113.67 / 1113.67 Lab / Micro Data Result Diagrams: 10/16/20 05:25 10/16/20 05:25 Labs: Laboratory Results - last 24 hr 10/15/20 05:40: Sodium 138, Potassium 4.1, Chloride 112 H, Carbon Dioxide 19.0 L , Anion Gap 7, BUN 11, Creatinine 0.89, Estim Creat Clear Calc 80.87, Est GFR (MDRD) Af Amer 86, Est GFR (MDRD) Non-Af 71, BUN/Creatinine Ratio 12.4, Glucose 84, Calcium 8.5, Total Bilirubin 0.30, AST 15, ALT 21, Alkaline Phosphatase 101, Total Protein 6.9, Albumin 3.1 L, Globulin 3.8, Albumin/Globulin Ratio 0.8 L 10/16/20 05:25: WBC 11.2 H, RBC 4.68, Hgb 13.0, Hct 43.1, MCV 92.1, MCH 27.8, MC HC 30.2 L, RDW Std Deviation 47.8 H, RDW Coeff of Winnie 14.1, Plt Count 305, MPV 9.5, Immature Gran % (Auto) 0.500, Neut % (Auto) 71.9 H, Lymph % (Auto) 19.8, [place] % (Auto) 5.8, Eos % (Auto) 1.6, Baso % (Auto) 0.4, Absolute Neuts (auto) 8.1 H, Absolute Lymphs (auto) 2.23, Nucleated RBC % 0 Micro: Microbiology 10/15/20 09:45 Mucosa - Nose SARS-CoV-2 Antigen (Rapid) - Final 10/14/20 13:38 Bite, Cat Gram Stain - Final 10/14/20 13:38 Bite, Cat Wound Culture - Preliminary No growth-Final to follow Physical Exam Narrative Physical Examination: General: Awake, alert, oriented x 3 and cooperative, seated upright in the medical surgical bed, fatigued appearing. Skin: Normal color, normal turgor, no icterus, no cyanosis except recent OR with dressing in place, no drainage, dressing change later in the day per wound care nurse with photos notable for right forearm lateral view status post I&D with no drainage and no marked gretchen-incisional erythema as well as right forearm medial view with VAC placement later in day. HEENT: AT/NC, EOMI, PERRLA, MMM. Lungs: Mildly diminished, greater bases, occasional coughing which is baseline she notes, no rales, ronchi or wheezing. Heart: Regular rate and rhythm; no gallop, rub audible. Abdomen: Soft, obese, NTTP, ND, normal BS. Extremities: No cyanosis, no clubbing, status post OR as noted, see skin above, mild swelling to the hand and forearm as expected. Neurological: Patient awake, alert, oriented as noted, cognitive function intact; pupils equally reactive to light and accommodation, cranial nerves II- XII grossly normal, moving all 4 extremities except limited movement right upper extremity given recent OR and discomfort, no focal deficits, strength mildly to moderately global decrease given recent OR and pain. Psychiatric: Affect appears fatigued otherwise less upset than day prior, not tearful with discussions today, does have flat affect however. Assessment & Plan Assessment/Plan (1) Infected cat bite: QUALIFIERS: Encounter type: subsequent encounter Qualified Code(s): W55.01XD - Bitten by cat, subsequent encounter PLAN: The patient is a 50 y/o F w/ PMHx: Obesity, Tobacco use, Hx EtOH so alec now x 10 years who presents to the [facility] ED on 10/14/20 with history of recent RUE distal volar forearm cat bite, specifically her own cat which is an indoor cat the Tuesday prior to current presentation with urgent care evaluation with at that time referral to the ED with initiation of Augmentin and cellulitic outline performed following her discharge which unfortunately worsened prompting return. 1. RUE Infected Cat Bite with resulting Extremity Cellulitis, concern for developing abscess: Patient admitted to the medical surgical floor, maintained on IV Unasyn, will continue right upper extremity elevation above heart, status post OR with Dr. Herrera 10/15/2020 with I&D, initial ED presentation wound cultures with no growth and currently operative cultures without growth, VAC placement 10/16/2020 per wound RN. Awaiting precertification for home wound VAC. Likely discharge 10/17/2020 on 10-day course of oral Augmentin with wound VAC with changes 3 times per week with wound care center visit 10/20/[address] Herrera. 2. History of prior alcohol abuse: Patient with history of alcohol abuse, sober [id number], encouraged continued sobriety. 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 3. Tobacco Abuse: Encouraged cessation, inpatient consultation per RT, NR if desired. 4. Obesity: Weight loss and lifestyle changes encouraged. 5. DVT prophylaxis: SCDs, Lovenox. Charges/Coding Visit Charges Inpatient E&M: 60962 Subs Hosp L2
[2020-10-16 06:55] LABS: ALB/GLOB Ratio 0.8 RATIO (0.9-2.4); AST(SGOT) 24 U/L (15-37); Alanine Aminotransfer ALT/SGPT 20 U/L (13-56); Alkaline Phosphatase 104 U/L (45-117); Anion Gap 7 (5-15); BUN 10 mg/dL (7-18); BUN/Creat Ratio 10.8 RATIO (10-20); Calcium,Total 8.2 mg/dL (8.5-10.1); Chloride 110 mmol/L (98-107); Creatinine, Serum 0.92 mg/dL (0.55-1.02); EST Glomerular Filtration Rate 68 mL/min (>60); Est Glom Filt Rate - Afr Amer 82 mL/min (>60); Estimated Creatinine Clearance 78.23 ml/min; Glucose 88 mg/dL (74-106); Potassium 5.1 mmol/L (3.5-5.1); Sodium Level 136 mmol/L (136-145)
[2020-10-16] MEDS: Enoxaparin 40 MG/0.4 ML Syringe SC (08:39)
--- NOTE | 2020-10-16 12:31 | NURSING ---
wound photo: right forearm (lateral view)
--- NOTE | 2020-10-16 12:32 | NURSING ---
wound photo: right forearm (medial view)
--- NOTE | 2020-10-16 12:33 | CASEMGMT ---
Addendum entered by Jolene Gill 10/16/20 13:00: ENRIQUE CEDILLO inquired if there is someone who would be agreeable to [facility] teaching on wound vac, per Ruben @ [facility] request. Pt states she thinks her daughter, Raquel Wilson, would be agreeable to this. Original Note: ENRIQUE CEDILLO NOTE: Pt will be discharging home w/wound vac, which has been applied today. ENRIQUE CEDILLO to room to discuss discharge planning. Pt agreeable to [facility]. Pt was provided with list of [facility] providers including quality and resource use data and consistent with the patient's preferred geographic region, medical needs, and insurance network. The pt states she does not have a preference of [facility] agencies. Call placed to Ruben [facility] and referral made for SN: Wound vac care. He was made aware pt may be ready for discharge today and SOC would need to be either Sat or Sun. Referral packet faxed. Awaiting acceptance. Jono NOEL RN, CM
--- NOTE | 2020-10-16 13:45 | PN.SURG_ITS ---
Subjective Subjective Postop day #1 Patient sitting in bed. She states she has pain with moving her fingers. Objective Data Objective Data Vital Signs: Vital Signs Temp Pulse Resp BP Pulse Ox 98.5 F 77 16 117/66 92 10/16/20 12:57 10/16/20 12:57 10/16/20 12:57 10/16/20 12:57 10/16/20 12:57 Oxygen Flow Rate (L/min) 2 Oxygen Delivery Method Room Air Weight: 234 lb 5.622 oz Body Mass Index (BMI) 33.6 Intake & Output: Intake and Output for Last 24 Hours 10/14/20 10/15/20 10/16/20 23:59 23:59 23:59 Intake Total 1382.33 / 1382.33 3516.33 / 3516.33 2559.34 / 2559.34 Balance 1382.33 / 1382.33 3516.33 / 3516.33 2559.34 / 2559.34 Lab / Micro Data Result Diagrams: 10/16/20 05:25 10/16/20 05:25 Labs: Laboratory Results - last 24 hr 10/16/20 05:25: WBC 11.2 H, RBC 4.68, Hgb 13.0, Hct 43.1, MCV 92.1, MCH 27.8, MCHC 30.2 L, RDW Std Deviation 47.8 H, RDW Coeff of Winnie 14.1, Plt Count 305, MPV 9.5, Immature Gran % (Auto) 0.500, Neut % (Auto) 71.9 H, Lymph % (Auto) 19.8, [place] % (Auto) 5.8, Eos % (Auto) 1.6, Baso % (Auto) 0.4, Absolute Neuts (auto) 8.1 H, Absolute Lymphs (auto) 2.23, Nucleated RBC % 0 10/16/20 05:25: Sodium 136, Potassium 5.1, Chloride 110 H, Carbon Dioxide 19.0 L , Anion Gap 7, BUN 10, Creatinine 0.92, Estim Creat Clear Calc 78.23, Est GFR (MDRD) Af Amer 82, Est GFR (MDRD) Non-Af 68, BUN/Creatinine Ratio 10.8, Glucose 88, Calcium 8.2 L, Total Bilirubin 0.50, AST 24, ALT 20, Alkaline Phosphatase 104, Total Protein 7.0, Albumin 3.0 L, Globulin 4.0, Albumin/Globulin Ratio 0.8 L Micro: Microbiology 10/15/20 13:00 Tissue - Arm Right Gram Stain - Final 10/15/20 13:00 Tissue - Arm Right Wound Culture - Preliminary No growth-Final to follow 10/14/20 13:38 Bite, Cat Gram Stain - Final 10/14/20 13:38 Bite, Cat Wound Culture - Preliminary No growth-Final to follow 10/15/20 09:45 Mucosa - Nose SARS-CoV-2 Antigen (Rapid) - Final Physical Exam Const no apparent distress HEENT normocephalic Resp normal respiratory effort Cardio regular rate GI non-tender Extremity no calf tenderness Skin Wound Narrative: Operative dressing removed from both the dorsal radial aspect and the dorsal ulnar aspect of the mid right forearm wounds. Wounds are stable. No active bleeding. Wound VAC dressing applied to both wounds. VAC at 150 mmHg. Neuro oriented x3 Psych mental status grossly normal Assessment & Plan Assessment/Plan (1) Open wound of right forearm due to cat bite: (2) Extensor tenosynovitis of right wrist: (3) Cat bite: (4) Abscess of forearm, right: (5) Smoker: (6) Acute post-operative pain: PLAN: Patient is doing well. She states she has pain with moving her fingers. Operative cultures are pending. Currently on Unasyn. Operative dressing removed from both the dorsal radial aspect and the dorsal ulnar aspect of the mid right forearm wounds. Wounds are stable. No active bleeding. Wound VAC at 150 mmHg placed today. Encouraged her to keep her hand elevated to help with edema. She is encouraged to move fingers and shown how to passively flex joints to help prevent stiffness. She will be discharged home after the wound VAC is approved. She will have home health assist her with her wound VAC changes. She will follow up at the wound healing center on Tuesday10/20/20. Charges/Coding Procedures Integumentary [id number]: [id number] Global Visit
--- NOTE | 2020-10-16 16:07 | NURSING ---
This RN reviewed SN charting
--- NOTE | 2020-10-16 16:13 | CASEMGMT ---
ENRIQUE CEDILLO called Ruben at [facility] to inquire if they are able to accept the patient. Ruben confirmed that they are able to accept. ENRIQUE CEDILLO updated Ruben that patient is still waiting on wound vac approval, so discharge not anticipated for today. MAMADOU will update [facility] when patient is discharged.
[2020-10-17 03:35] VITALS: BP 155/86; PULSE 77; RESP 16; TEMP 37.2; O2SAT 94
[2020-10-17] MEDS: 0.9% Normal Saline 1,000 ML 100 ML IV (05:08)
[2020-10-17 07:14] LABS: Absolute Neutrophil Count 7.9 X10^3/uL (2.0-7.7); Basophil# 0.06 X10^3/uL; Basophil% 0.5 % (0-1); Eosinophil# 0.21 X10^3/uL; Eosinophils% 1.8 % (0-5); Hematocrit 35.4 % (37-47); Lymphocyte % 20.2 % (19-41); Mean Corp Hgb Conc 31.1 g/dL (32-36); Mean Corpuscular Hgb 27.8 pg (27.0-32.0); Mean Corpuscular Volume 89.4 fL (81-99); Mean Platelet Vol. 9.2 fl (6.2-12.0); Monocyte# 0.86 X10^3/uL; Monocyte% 7.6 % (0-10); NRBC Flagged by Analyzer 0 % (0-5); Neutrophil # 7.88 X10^3/uL (2.7-7.7); Neutrophil % 69.5 % (47-70); Platelet Count 298 K/mm3 (150-450); RBC Distribution Width CV 13.7 % (11.6-14.6); RBC Distribution Width SD 45.4 fl (35.1-43.9); Red Blood Count 3.96 M/mm3 (4.2-5.4); White Blood Count 11.4 K/mm3 (4.4-11.0)
[2020-10-17 07:42] LABS: ALB/GLOB Ratio 0.9 RATIO (0.9-2.4); AST(SGOT) 13 U/L (15-37); Alanine Aminotransfer ALT/SGPT 18 U/L (13-56); Albumin, Serum 2.8 g/dL (3.2-5.0); Alkaline Phosphatase 84 U/L (45-117); Anion Gap 5 (5-15); BUN 10 mg/dL (7-18); BUN/Creat Ratio 12.8 RATIO (10-20); Calcium,Total 8.1 mg/dL (8.5-10.1); Chloride 111 mmol/L (98-107); Creatinine, Serum 0.78 mg/dL (0.55-1.02); EST Glomerular Filtration Rate 82 mL/min (>60); Est Glom Filt Rate - Afr Amer 99 mL/min (>60); Estimated Creatinine Clearance 92.27 ml/min; Globulin 3.2 g/dL (2.2-4.2); Glucose 93 mg/dL (74-106); Potassium 4.2 mmol/L (3.5-5.1); Sodium Level 140 mmol/L (136-145)
[2020-10-17 09:10] VITALS: O2SAT 90
--- NOTE | 2020-10-17 09:22 | PCM.DC.SUM ---
Providers Date of Admission: 10/14/20 Primary Care Physician: Dr. Ruben Vasques MD Consultations 10/14/20 13:23 Consult: Plastic Surgery Routine Consulting Provider: Wang Herrera Reason for Consult: RUE infected cat bite. EMERGENT Consult: No MD Notified: Yes Date Notified: 10/14/20 Time Notified: 13:23 Method of Notification: called 10/17/20 07:15 Consult: Onc/Wound/lead engineer Routine Comment: Reason for Consult:: wound VAC right arm Reason For Visit: RUE CELLULITIS CAT BITE INFECTED Diagnosis Discharge Diagnosis (1) Infected cat bite: Status: Acute Code(s): W55.01XA - Bitten by cat, initial encounter Qualifiers: Encounter type: subsequent encounter Qualified Code(s): W55.01XD - Bitten by cat, subsequent encounter Medications at Discharge Home Medications amoxicillin-pot clavulanate [Augmentin] 1 tab PO BID 10 Days #20 tab 10/13/20 diazepam [Valium] 5 mg PO BID PRN #14 tab 10/16/20 oxycodone-acetaminophen [Percocet] 1 tab PO Q4H PRN 7 Days #40 tab 10/16/20 Hospital Course Operations - (OR 10/15/20 w/ Dr. Herrera: 1. Surgical preparation dorsal radial aspect and dorsal ulnar aspect mid right forearm with incision and drainage and excisional debridement cat bite wounds infection abscess. 2. Extensor tenosynovectomy for tenosynovitis compartment I distal right forearm at wrist.) Procedures EKG Summary of Care Provided Minutes Spent on Discharge: 35 Hospital Course: Discharge Diagnoses: 1. RUE Forearm Infected Cat Bite with resulting Extremity Cellulitis, Abscess requiring OR, Unclear exact organism (Wound Cx no growth) 2. History of prior alcohol abuse, Sober 3. Tobacco Abuse 4. Obesity 5. Suspected ARTHUR Discharge Summary: The patient is a 50 y/o F w/ PMHx: Obesity, Tobacco use, Hx EtOH sober now x 10 years who presented to the [facility] ED on 10/14/20 with history of recent RUE distal volar forearm cat bite, specifically her own cat which is an indoor cat the Tuesday prior to current presentation with urgent care evaluation with at that time referral to the ED with initiation of Augmentin (only 2 doses) and cellulitic outline performed following her discharge which unfortunately worsened prompting return. Patient admitted to the medical surgical floor, maintained on IV Unasyn, continued right upper extremity elevation, OR with Dr. Herrera 10/15/2020 with I&D, initial ED presentation wound cultures with no growth and operative cultures without growth, VAC placement 10/16/2020 per wound RN. Per discussion with Dr. Herrera, planned completion of augmentin 10 day course with VAC change Tuesday or Tuesday with [facility] follow-up w/ Dr. Herrera 10/20/2020. During admission, patient with mild hypoxia at night while sleeping, suspect sleep apnea, strongly encourage patient to follow-up with PCP and have sleep apnea assessment set up. Encourage continued sobriety as well as cessation of tobacco usage especially to assist in wound healing. Patient discharged to home in stable, improved condition with follow-up as noted with Dr. Herrera as well as with PCP. Discharge Time: > 35 Minutes DAY OF DISCHARGE PROGRESS NOTE: Subjective: Patient without acute event overnight per self and nursing report. Patient notes pain is improving as well as swelling although this morning she is been up and moving and did have some assistance with cleaning her hair and following this did note the swelling increased in the right upper extremity. Patient with minimal discharge or drainage into the VAC system. Patient denies fever, chills, nausea, emesis, abdominal pain, chest pain or dyspnea. Patient agreeable to discharge to home with home health care with ongoing wound VAC changes. Patient will be discharged with follow-up with primary care physician within 3-5 days in addition to Dr. Herrera at the wound care center on 10/20/2020.. Objective: T 99, heart rate 77, BP 141 RV 3, respiratory rate 16, 94% on room air. Physical Examination: General: Awake, alert, oriented x 3 and cooperative, seated upright in the medical surgical bed, improved appearance, recently washed hair, more interactive than prior. Skin: Normal color, normal turgor, no icterus, no cyanosis except recent OR VAC now in place, no serosanguineous drainage in the canister, swelling significantly improved, some evident mild distal swelling in the fingers and also staged ecchymoses given recent surgery. HEENT: AT/NC, EOMI, PERRLA, MMM. Lungs: Diminished, greater bases, occasional coughing similar to baseline, effort improving, no rales, ronchi or wheezing. Heart: Regular rate and rhythm; no gallop, rub audible. Abdomen: Soft, obese, NTTP, ND, normal BS. Extremities: No cyanosis, no clubbing, status post OR as noted, see skin above, mild swelling to the hand and forearm as expected. Neurological: Patient awake, alert, oriented as noted, cognitive function intact; pupils equally reactive to light and accommodation, cranial nerves II-XII grossly normal, moving all 4 extremities with improved movement of her right upper extremity, pain improving, no focal deficits, strength mildly globally decreased. Psychiatric: Affect appears less fatigued, more interactive, no obvious evidence of any depression or anxiety currently. Assessment and Plan: Please see hospital summary above. Weight / BMI Weight Weight: 234 lb 5.622 oz Body Mass Index (BMI) 33.6 ABG / Lab / Microbiology Data Result Diagrams: 10/17/20 06:24 10/17/20 06:24 Laboratory: Laboratory Results - last 24 hr 10/17/20 06:24: WBC 11.4 H, RBC 3.96 L, Hgb 11.0 L, Hct 35.4 L, MCV 89.4, MCH 27.8, MCHC 31.1 L, RDW Std Deviation 45.4 H, RDW Coeff of Winnie 13.7, Plt Count 298, MPV 9.2, Immature Gran % (Auto) 0.400, Neut % (Auto) 69.5, Lymph % (Auto) 20.2, [place] % (Auto) 7.6, Eos % (Auto) 1.8, Baso % (Auto) 0.5, Absolute Neuts (auto) 7.9 H, Absolute Lymphs (auto) 2.30, Nucleated RBC % 0 10/17/20 06:24: Sodium 140, Potassium 4.2, Chloride 111 H, Carbon Dioxide 24.0, Anion Gap 5, BUN 10, Creatinine 0.78, Estim Creat Clear Calc 92.27, Est GFR (MDRD) Af Amer 99, Est GFR (MDRD) Non-Af 82, BUN/Creatinine Ratio 12.8, Glucose 93, Calcium 8.1 L, Total Bilirubin 0.30, AST 13 L, ALT 18, Alkaline Phosphatase 84, Total Protein 6.0 L, Albumin 2.8 L, Globulin 3.2, Albumin/Globulin Ratio 0.9 Microbiology: Microbiology 10/15/20 13:00 Tissue - Arm Right Gram Stain - Final 10/15/20 13:00 Tissue - Arm Right Wound Culture - Preliminary No growth-Final to follow 10/15/20 13:00 Tissue - Arm Right Anaerobic Culture - Preliminary No growth in 48 hours. 10/14/20 13:38 Bite, Cat Gram Stain - Final 10/14/20 13:38 Bite, Cat Wound Culture - Final No growth aerobically. 10/15/20 09:45 Mucosa - Nose SARS-CoV-2 Antigen (Rapid) - Final D/C Instructions Discharge Diet: Low fat / Low cholesterol May resume sexual activity in: No Restrictions Weight Bearing Status: Weight bearing as tolerated Keep extremity elevated above heart level: Operative Extremity Call your doctor if your incision/area has: Continuous Slow Oozing, Sudden Increased Bleeding, Increased Pain/ Swelling, Increased Redness, Foul Smelling Discharge and Swelling at the incision site Call your doctor if you observe: Fever of 101 or Higher, Inability to have a bowel movement, Shortness of breath, Dizziness, Fainting spells, Chest pain and Increased palpitations (irregular heartbeat) Additional Dressing/Incision Instructions: Dressing changes/VAC change will occur per Home Health Tuesday or Tuesday. If any concerns please contact them immediately. Meaningful Use Info Meaningful Use Diagnoses (Choose all that apply): None applicable Discharge Plan Admission Admit Date/Time: 10/14/20 13:12 Primary Reason for Your Visit: RUE Infected Cat Bite, Abscess, Suspected ARTHUR Attending Provider: Maggie Crooks Primary Care Provider: Ruben Vasques Consulting Providers: Wang Herrera Instructions Patient Instructions: Animal Bites and Scratches, Abscess Drainage, Negative Pressure Wound Therapy, ED Cat Bite, ED Sleep Apnea, Obstructive Additional Instructions / Restrictions: DISCHARGE INSTRUCTIONS: Please continue wound VAC care with home health nursing with plan change likely Tuesday or Tuesday and from then forward 3 times weekly until discontinued. He will have follow-up care in the wound care center with Dr. Herrera on Tuesday and will be reassessed at that time. Please complete recently initiated Augmentin antibiotic therapy. If at any point you noticed that the wound VAC foam is not compressed immediately contact home health nursing for directions. We strongly recommend continued elevation to assist with swelling in the right upper extremity. Tobacco use does affect wound healing. If able continuing to be tobacco smoke free would assist in healing you arm faster. ADDITIONAL: At follow-up with your primary care we strongly encourage you to discuss sleep apnea assessment as while in the hospital at night your oxygenation will decrease while sleeping. Discharge Orders/Prescriptions Prescriptions: New oxycodone-acetaminophen [Percocet] 5-325 mg tablet 1 tab PO Q4H PRN (Reason: pain (scale score 7-10)) 7 Days Qty: 40 RF: 0 diazepam [Valium] 5 mg tablet 5 mg PO BID PRN (Reason: spasms) Qty: 14 RF: 0 Continued amoxicillin-pot clavulanate [Augmentin] 875-125 mg tablet 1 tab PO BID 10 Days Qty: 20 RF: 0 Referrals / Follow Up: Wang Herrera MD [STAFF PHYSICIAN] - (Please follow-up with Dr. Herrera at the [facility] on 10/20/20. Call earlier if any concerns.) Ruben Vasques MD [Primary Care Provider] - (Follow-up within 3-5 days to review admission. Advise discussion regarding possible sleep apnea at follow-up also.) Disposition Disposition (needs filled in before D/C Order can be placed): Home Health Service Charges/Coding Visit Charges Inpatient E&M: 28075 Disch Hosp
[2020-10-17 09:30] VITALS: BP 124/55; PULSE 81; RESP 18; TEMP 37.1; O2SAT 93
[2020-10-17] MEDS: oxyCODONE 5 MG Tablet PO (09:45)
[2020-10-17] MEDS: Enoxaparin 40 MG/0.4 ML Syringe SC (09:46)
--- NOTE | 2020-10-17 10:58 | NURSING ---
Called and talked with [employer]. states the wound VAC should be approved within the hour.
--- NOTE | 2020-10-17 12:32 | NURSING ---
Pt switched over to the home VAC. reviewed alarms, etc. with patient. proof of delivery form signed and faxed back to [facility]. pt denies questions. ENRIQUE Ricks aware. [facility] to see patient for VAC change tomorrow.
--- NOTE | 2020-10-17 12:47 | CASEMGMT ---
Addendum entered by Jolene Gill 10/17/20 13:43: Ruben @ [facility] made aware pt's teachable caregiver is her daughter, Raquel Beach. Original Note: ENRIQUE CEDILLO NOTE: Wound vac has been approved. Call placed to Ruben @ [facility]. He was notified pt is being discharged home today. He is aware wound vac was applied yesterday. He confirms SOC will be tomorrow 10/18/20. Pt made aware and she denies having any further discharge needs/concerns. Discharge instructions and summary faxed to [facility] at this time. Jono NOEL RN CM
[2020-10-17 13:14] VITALS: BP 127/59; PULSE 86; RESP 18; TEMP 36.8; O2SAT 95
== END 2020-10-17 14:22 | disposition home health service (06) | DRG 982 ==
LOC: ED 13:06 → MS3 14:18
PROVIDERS: Surgery; Admitting Provider Family Medicine; Emergency Provider Emergency Medicine; PCP Family Medicine; Visit Provider Family Medicine
PROC: 0LB50ZZ Excision of Right Lower Arm and Wrist Tendon, Open Approach (ICD-10-PCS; principal; 2020-10-15 11:15)
DX: S51.851A Open bite of right forearm, initial encounter (principal); L02.413 Cutaneous abscess of right upper limb; L03.113 Cellulitis of right upper limb; M65.831 Other synovitis and tenosynovitis, right forearm; W55.01XA Bitten by cat, initial encounter; Y93.9 Activity, unspecified; Y92.9 Unspecified place or not applicable; E66.9 Obesity, unspecified; F17.210 Nicotine dependence, cigarettes, uncomplicated; Z68.33 Body mass index [BMI] 33.0-33.9, adult; G47.33 Obstructive sleep apnea (adult) (pediatric); G56.03 Carpal tunnel syndrome, bilateral upper limbs; F10.11 Alcohol abuse, in remission
CPT/HCPCS: 36415; 80048; 80053; 85025; 87070; 87075; 87102; 87176; 87205; 87206; 87426; 87640; 88304; 93005; 97802; 99251; 99284; 99406; J7030; J7120; A4216; G0463; J0295; J2405

== ENCOUNTER 2020-10-27 09:30 | Outpatient (RCR) | payer OTHER, SELFPAY ==
[2020-10-15 10:13] VITALS: BMI 33.6
[2020-10-20 08:54] VITALS: BP 127/76; PULSE 72; RESP 18; TEMP 37.1; BMI 33.7
--- NOTE | 2020-10-20 12:35 | HP.PCM_ITS ---
History of Present Illness Date of Service: 10/20/20 Chief Complaint: Surgical wound of right forearm from a cat bite History of Wound: The patient is a 50 year old woman who was admitted for a worsening cat bite right forearm that she sustained on 10/12/20. It is her own cat which is an indoor cat. Initially she went to Urgent Care and Augmentin was prescribed. She noticed increasing pain, and redness, and swelling over the next 24 hours which prompted her visit to the ED for failed o utpatient therapy. She was admitted and started on Unasyn. Her WBC was 11.9. She had persistent pain and redness over the cat bite wounds (dorsal radial aspect and dorsal ulnar aspect mid right forearm). Surgery 10/15/20 - 1. Surgical preparation dorsal radial aspect and dorsal ulnar aspect mid right forearm with incision and drainage and excisional debridement cat bite wounds infection abscess. 2. Extensor tenosynovectomy for tenosynovitis compartment I distal right forearm at wrist (abductor pollicis longus tendon and extensor pollicis brevis tendon). She was discharged home on 10/17/20 with a wound VAC at 150 mmHg. Operative cultures were negative for bacterial growth. She is currently taking Augmentin. Today she denies fever or nausea. She states she has a good appetite. Progress of Wound: Stable. PFSH Medical History Abscess of forearm, right Carpal tunnel syndrome, bilateral Extensor tenosynovitis of right wrist History of ETOH abuse Infected cat bite Obesity Open wound of right forearm due to cat bite Smoker Tobacco use Home Medications amoxicillin-pot clavulanate [Augmentin] 1 tab PO BID 10 Days #20 tab 10/13/20 [Rx Last Taken Unknown] diazepam [Valium] 5 mg PO BID PRN #14 tab 10/16/20 [Rx Last Taken Unknown] oxycodone-acetaminophen [Percocet] 1 tab PO Q4H PRN 7 Days #40 tab 10/16/20 [Rx Last Taken Unknown] Allergy/AdvReac Type Severity Reaction Status Date / Time No Known Allergies Allergy Verified 10/20/20 09:16 Family History Mother Crohn's disease Father Colon cancer, Onset Age: 55 Diagnosed 54 years old, age 56. Surgical History History of hysterectomy S/p bilateral carpal tunnel release Social History household members: none Smoking Status: Current every day smoker tobacco type: cigarettes alcohol intake: former details: Patient with EtOH abuse history, sober now x 10 years. substance use type: does not use ROS Constitutional Constitutional: Reports systems reviewed and no addt'l complaints, except as documented Eyes Eyes: Reports systems reviewed and no addt'l complaints, except as documented Cardiovascular Cardiovascular: Reports systems reviewed and no addt'l complaints, except as documented Respiratory/Chest Respiratory/Chest: Reports systems reviewed and no addt'l complaints, except as documented Gastrointestinal Gastrointestinal: Reports systems reviewed and no addt'l complaints, except as documented Integumentary Integumentary: Reports wounds Psychiatric Psychiatric: Reports none Vital Signs Vital Signs Vital Signs: 10/20/20 08:54 Temperature 98.7 F Temperature Source Temporal Pulse Rate 72 Respiratory Rate 18 Blood Pressure 127/76 H Blood Pressure Mean 93 Blood Pressure Source Monitor Weight Weight: 234 lb 14.107 oz Body Mass Index (BMI) 33.7 Physical Exam Const alert, oriented x3 and no apparent distress General Appearance: cooperative and well kempt HEENT normocephalic Eyes PERRL Lymph Lymphatic: no lymphedema noted Resp normal respiratory effort and normal air movement Cardio regular rate and regular rhythm GI normal to inspection, nondistended, normoactive bowel sounds Extremity normal capillary refill Extremity Narrative: Right hand and wrist have pain with movement. She is able to make a loose fist. She can touch her thumb to each finger tip on her right. Wrist motion is painful. Skin no rashes or lesions noted Wound Narrative: Wounds on right radial and right lateral arm. Both are stable. No active bleeding. Neuro oriented x3 Psych mental status grossly normal Debridement Note Debridement Note Post-Debridement Measurements and Additional Note: Post-Debridement Measurements/Treatment WC - Nurse 1 - General Ulcer Assessment Start: 10/20/20 08:44 Freq: Status: Active Protocol: YASMEEN Activity Type Activity Date Activity User E-Sign Co-Sign Detail Recorded Client Recorded Date Recorded By Document 10/20/20 08:54 DL [id number] 10/20/20 09:13 DL 10/20/20 08:54 WC - Today's Visit Information Type of service Initial Visit Arrival Mode Ambulatory Transfer Assistance None Patient Identification Verified (Name & Yes ) Patient Requires Transmission-Based No Precautions Height and Weight Height 5 ft 10 in Weight 234 lb 14.107 oz Weight in Pounds 234.9 lbs Body Mass Index (BMI) 33.7 BMI Classification Obese BSA - Rajendra 2.23 Vital Signs Temperature (97.8 F-99.1 F) 98.7 F Temperature Source Temporal Pulse Rate (60-100) 72 Pulse Location Monitor Respiratory Rate (12-18) 18 Respiratory rate source Observation Blood Pressure (90/60-120/80) 127/76 H Blood Pressure Mean 93 Source Monitor Pain Scale: 0-10 Numeric Is Patient Pain Free? Yes Communication Assessment Preferred language Macedonian Pantograph Operator Required No Able to Read Yes Able to Write No Right Hearing Abillity Normal Left Hearing Abillity Normal Visual Assistive Devices Glasses Teaching Assessment Preferences Verbal,Written, Demonstration Barriers to Learning Unable to Comprehend Willingness to Engage in Self Management Med Activies Readiness to Engage in Self Management Med Activities Anxiety Level Calm Cooperation Cooperative Perception Coherent Interest in Health Problem Asks Questions Education Importance Acknowledges Need Does Patient Smoke tobacco or other Yes substances Smoking Status Current every day smoker Is Patient Diabetic Yes Functional Assessment Recent Decline in Ability to Perform Denies Any Declines Assistive Device With Patient N/A Culture/Shinto/Weather Forecaster Cultural/Shinto Needs that may affect No Treatment Plan Would you allow our hospital field reviewer to No meet you for the purpose of spiritual/ emotional support? Weather Forecaster to contact place of restorationist No Teaching: Wound Center *Infection -Person Taught Patient Diagnostic Tests Ordered -Person Taught Patient Discharge Instructions -Person Taught Patient *Welcome to the Wound Center -Person Taught Patient WC - Nurse 1 - General Ulcer Measurement Start: 10/20/20 08:44 Freq: Status: Active Protocol: Activity Type Activity Date Activity User E-Sign Co-Sign Detail Recorded Client Recorded Date Recorded By Document 10/20/20 08:54 DL [id number] 10/20/20 09:13 DL 10/20/20 08:54 Wound Center Nurse 1 #2 R Med Wrist -Current Size (cm) - Length 2.8 -Current Size (cm) - Width 1.5 -Current Size (cm) - Depth 0.3 -Total Square Cm 4.20 -Photo Taken Yes -Exudate Amt Small -Exudate Type Serosanguineous -Wound Margin Distinct, Outline Attached -Granulation Amt Medium (34-66%) -Granulation Quality Red -Necrosis Amt Medium (34-66%) -Necrotic Tissue Type Adherent Slough -Structure Exposed N/A -Texture (Violetta-wound Skin Appearance) Localized Edema ,Scarring -Moisture (Violetta-wound Skin Appearance) No Abnormality -Color (Violetta-wound Skin Appearance) No Abnormality -Temperature (Violetta-wound Skin No Abnormality Appearance) (Pt Warm) -Tenderness on Palpation (Violetta-wound No Skin Appearance) -Ulcer Cleansing Wound Cleanser -Anesthetic Used 4% Lidocaine Solution #1 R. lat wrist -Current Size (cm) - Length 2.5 -Current Size (cm) - Width 1 -Current Size (cm) - Depth 0.4 -Total Square Cm 2.5 -Photo Taken Yes -Exudate Amt Small -Exudate Type Serosanguineous -Wound Margin Distinct, Outline Attached -Granulation Amt Medium (34-66%) -Granulation Quality Red -Necrosis Amt Small (1-33%) -Necrotic Tissue Type Adherent Slough -Structure Exposed N/A -Texture (Violetta-wound Skin Appearance) Localized Edema ,Scarring -Moisture (Violetta-wound Skin Appearance) No Abnormality -Color (Violetta-wound Skin Appearance) No Abnormality -Temperature (Violetta-wound Skin No Abnormality Appearance) (Pt Warm) -Tenderness on Palpation (Violetta-wound No Skin Appearance) -Ulcer Cleansing Wound Cleanser -Foul Odor after Cleansing No -Anesthetic Used 4% Lidocaine Solution WC - Nurse 3 - General Ulcer D/C NN Start: 10/20/20 08:44 Freq: Status: Active Protocol: Activity Type Activity Date Activity User E-Sign Co-Sign Detail Recorded Client Recorded Date Recorded By Document 10/20/20 09:46 DL [id number] 10/20/20 09:48 DL 10/20/20 09:46 Wound Care Nurse 3 #2 R Med Wrist -Ulcer Cleansing Wound Cleanser -Foul Odor after Cleansing No -Primary Dressing Applied Aquacel AG 4x4 -Primary Dressing Covered/Secured with Dry Gauze & Roll Gauze, Secured with Tape -Aquacel AG 4x4 1 #1 R. lat wrist -Ulcer Cleansing Wound Cleanser -Foul Odor after Cleansing No -Other Dressing aqaucel ag -Primary Dressing Covered/Secured with Dry Gauze & Roll Gauze, Secured with Tape Treatment Response Procedure Tolerated Well Pain Scale: 0-10 Numeric Is Patient Pain Free? Yes WC - Visit Discharge Discharge Condition Stable Ambulatory Status Ambulatory Transportation Private Auto Notes: Pt to resume Vac today or tomorrow via [facility]. Additional Wound Wound debrided: medial and lateral right arm wounds Laterality: Right Type of Debridement: Excisional debridement Anesthesia Used: 5% Lidocaine Gel Depth: Down to and including healthy tissue and in the subcutaneous layer Percentage of wound debrided: 100 Instrument Used: 5mm curette Tissue Removed: Subcutaneous tissue and slough Severity: Fat Layer Exposed Amount of bleeding with debridement: Mild Bleeding Controlled with: Pressure Patient tolerated procedure: Patient tolerated procedure well Charges/Coding Procedures Integumentary [id number]: [id number] Global Visit Assessment/Plan Assessment/Plan (1) Open wound of right forearm due to cat bite: CODE(S): S51.851A - Open bite of right forearm, initial encounter; W55.01XA - Bitten by cat, initial encounter (2) Infected cat bite: CODE(S): W55.01XA - Bitten by cat, initial encounter QUALIFIERS: Encounter type: subsequent encounter Qualified Code(s): W55.01XD - Bitten by cat, subsequent encounter (3) Extensor tenosynovitis of right wrist: CODE(S): M65.831 - Other synovitis and tenosynovitis, right forearm (4) Smoker: CODE(S): F17.200 - Nicotine dependence, unspecified, uncomplicated PLAN: Wound care - Wound VAC to both wounds at 150 mmHg. VAC dressing changes will be done 3 times per week. She did not bring her wound VAC supplies today, will dress her wounds with Silver alginate and home health can place wound VAC tomorrow. She is to continue the Augmentin antibiotic. Encouraged movement of her fingers and wrist. Demonstrated with her what she needs to do, including passive range of motion to keep fingers and knuckles from becoming stiff. Encouraged increase in protein intake to help with wound healing. Encouraged patient to stop smoking as it may have deleterious effects on wound healing. Follow up one week
[2020-10-27 09:34] VITALS: BP 143/78; PULSE 91; RESP 18; TEMP 36.4; BMI 33.7
--- NOTE | 2020-10-27 14:47 | PN.PCM_ITS ---
History of Present Illness Date of Service: 10/27/20 Chief Complaint: Surgical wound of right forearm from a cat bite History of Wound: The patient is a 50 year old woman who was admitted for a worsening cat bite right forearm that she sustained on 10/12/20. It is her own cat which is an indoor cat. Initially she went to Urgent Care and Augmentin was prescribed. She noticed increasing pain, and redness, and swelling over the next 24 hours which prompted her visit to the ED for failed o utpatient therapy. She was admitted and started on Unasyn. Her WBC was 11.9. She had persistent pain and redness over the cat bite wounds (dorsal radial aspect and dorsal ulnar aspect mid right forearm). Surgery 10/15/20 - 1. Surgical preparation dorsal radial aspect and dorsal ulnar aspect mid right forearm with incision and drainage and excisional debridement cat bite wounds infection abscess. 2. Extensor tenosynovectomy for tenosynovitis compartment I distal right forearm at wrist (abductor pollicis longus tendon and extensor pollicis brevis tendon). She was discharged home on 10/17/20 with a wound VAC at 150 mmHg. Wound care?take a VAC holiday for 1 week. Will start Teagan cover with gauze daily. Operative cultures were negative for bacterial growth. She is currently taking A ugmentin. Today she denies fever or nausea. She states she has a good appetite. Progress of Wound: Improved. Objective Data Objective Data Vital Signs: Vital Signs Temp Pulse Resp BP 97.6 F L 91 18 143/78 H 10/27/20 09:34 10/27/20 09:34 10/27/20 09:34 10/27/20 09:34 Weight: 234 lb 14.107 oz Body Mass Index (BMI) 33.7 Charges/Coding Procedures Integumentary 111xxx-113xx: 39243 Global Visit Physical Exam Const alert and oriented x3 General Appearance: cooperative HEENT normocephalic Eyes PERRL Lymph Lymphatic: no lymphedema noted Resp normal respiratory effort Cardio regular rate GI Palpation: soft Extremity normal capillary refill Skin Wound Narrative: Wounds on right radial and lateral dorsal aspect of arm are beefy pink in color. They are smaller in size and depth. 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 ) Arrival Mode Ambulatory Ambulatory Transfer Assistance None None Patient Identification Verified (Name & Yes Yes ) Patient Requires Transmission-Based No No Precautions Height and Weight Height 5 ft 10 in Weight 234 lb 14.107 oz Weight in Pounds 234.9 lbs Body Mass Index (BMI) 33.7 33.7 BMI Classification Obese Obese BSA - Rajendra 2.23 Vital Signs Temperature (97.8 F-99.1 F) 98.7 F 97.6 F L Temperature Source Temporal Temporal Pulse Rate (60-100) 72 91 Pulse Location Monitor Monitor Respiratory Rate (12-18) 18 18 Respiratory rate source Observation Observation Blood Pressure (90/60-120/80) 127/76 H 143/78 H Blood Pressure Mean (mm Hg) 93 99 Source Monitor Monitor History Since Last Visit- (Skip if this is Patient's initial visit) Have you changed medications since your No last visit? Any new allergies or adverse reactions No Had a fall/change in ADL's that may No increase risk of falls Have you been in the hospital since your No last visit? Has dressing in place as prescribed Yes Has compression in place as prescribed N/A Has offloadiing in place as prescribed N/A Experienced any changes in pain level or No management Pain Scale: 0-10 Numeric Is Patient Pain Free? Yes Communication Assessment Preferred language Bel[place]ian Sonogram Technician Required No Able to Read Yes Able to Write No Right Hearing Abillity Normal Left Hearing Abillity Normal Visual Assistive Devices Glasses Teaching Assessment Preferences Verbal,Written, Demonstration Barriers to Learning Unable to Comprehend Willingness to Engage in Self Management Med Activies Readiness to Engage in Self Management Med Activities Anxiety Level Calm Cooperation Cooperative Perception Coherent Interest in Health Problem Asks Questions Education Importance Acknowledges Need Does Patient Smoke tobacco or other Yes substances Smoking Status Current every day smoker Is Patient Diabetic Yes Functional Assessment Recent Decline in Ability to Perform Denies Any Declines Assistive Device With Patient N/A 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 Carbon Capture Power Plant Operator to contact place of restorationist No Teaching: Wound Center *Infection -Person Taught Patient Diagnostic Tests Ordered -Person Taught Patient Discharge Instructions -Person Taught Patient *Welcome to the Wound Center -Person Taught Patient WC - Nurse 1 - General Ulcer Measurement Start: 10/20/20 08:44 Freq: Status: Active Protocol: Activity Type Activity Date Activity User E-Sign Co-Sign Detail Recorded Client Recorded Date Recorded By Document 10/20/20 08:54 DL [id number] 10/20/20 09:13 DL Document 10/27/20 09:34 DL [id number] 10/27/20 09:43 DL 10/20/20 10/27/20 08:54 09:34 Wound Center Nurse 1 #2 R Med Wrist -Current Size (cm) - Length 2.8 2.3 -Current Size (cm) - Width 1.5 1.5 -Current Size (cm) - Depth 0.3 0.2 -Total Square Cm 4.20 3.45 -Photo Taken Yes No -Exudate Amt Small Small -Exudate Type Serosanguineous Serosanguineous -Wound Margin Distinct, Distinct, Outline Outline Attached Attached -Granulation Amt Medium (34-66%) Large (67-100%) -Granulation Quality Red Red -Necrosis Amt Medium (34-66%) Small (1-33%) -Necrotic Tissue Type Adherent Slough Adherent Slough -Structure Exposed N/A N/A -Texture (Violetta-wound Skin Appearance) Localized Edema Scarring ,Scarring -Moisture (Violetta-wound Skin Appearance) No Abnormality Maceration -Color (Violetta-wound Skin Appearance) No Abnormality No Abnormality -Temperature (Violetta-wound Skin No Abnormality No Abnormality Appearance) (Pt Warm) (Pt Warm) -Tenderness on Palpation (Violetta-wound No No Skin Appearance) -Ulcer Cleansing Wound Cleanser Wound Cleanser -Foul Odor after Cleansing No -Anesthetic Used 4% Lidocaine 4% Lidocaine Solution Solution #1 R. lat wrist -Current Size (cm) - Length 2.5 1.8 -Current Size (cm) - Width 1 0.8 -Current Size (cm) - Depth 0.4 0.2 -Total Square Cm 2.5 1.44 -Photo Taken Yes No -Exudate Amt Small Small -Exudate Type Serosanguineous -Wound Margin Distinct, Distinct, Outline Outline Attached Attached -Granulation Amt Medium (34-66%) Medium (34-66%) -Granulation Quality Red Red -Necrosis Amt Small (1-33%) Medium (34-66%) -Necrotic Tissue Type Adherent Slough Adherent Slough -Structure Exposed N/A N/A -Texture (Violetta-wound Skin Appearance) Localized Edema Scarring ,Scarring -Moisture (Violetta-wound Skin Appearance) No Abnormality Dry/Scaly -Color (Violetta-wound Skin Appearance) No Abnormality No Abnormality -Temperature (Violetta-wound Skin No Abnormality No Abnormality Appearance) (Pt Warm) (Pt Warm) -Tenderness on Palpation (Violetta-wound No No Skin Appearance) -Ulcer Cleansing Wound Cleanser Wound Cleanser -Foul Odor after Cleansing No No -Anesthetic Used 4% Lidocaine 4% Lidocaine Solution Solution WC - Nurse 2 - General Ulcer CM Notes Start: 10/20/20 08:44 Freq: Status: Active Protocol: Activity Type Activity Date Activity User E-Sign Co-Sign Detail Recorded Client Recorded Date Recorded By Document 10/20/20 13:17 OWEN [id number] 10/20/20 13:20 Document 10/27/20 10:04 [id number] 10/27/20 10:10 10/20/20 10/27/20 13:17 10:04 Wound Center Nurse 2 #2 R Med Wrist -Time 09:24 10:04 -Correct Patient Yes Yes -Correct Side, Site, Position Yes Yes -Correct Procedure Yes Yes -Procedure Performed Yes Yes -Type of Procedure Debridement Debridement -Clinical Debridement Subcutaneous Subcutaneous -Tissue Removed Subcutaneous Subcutaneous -Post Debridement (cm) - Length 2.5 2.6 -Post Debridement (cm) - Width 1.5 1.4 -Post Debridement (cm) - Depth 0.4 0.3 -Total Square (Post) (cm) 3.75 3.64 -Area of Debridement (cm) - Length 2.5 2.6 -Area of Debridement (cm) - Width 0.5 1.4 -Total Square (Area) (cm) 1.25 3.64 -Tunneling No No -Undermining/Tunneling No No -Circular Undermining No No -Wound/Ulcer Outcome Not Healed Not Healed -Ulcer Cleansing Rinsed/ Rinsed/ Irrigated with Irrigated with Saline Saline -Foul Odor after Cleansing No No -Bioengineered Tissue No No -Bleeding Controlled with Pressure Pressure -Offloading No -Treatment Response Procedure Procedure Tolerated Well Tolerated Well -Debridement - Subq, 1st 20sq cm Yes Yes #1 R. lat wrist -Time 09:24 10:05 -Correct Patient Yes Yes -Correct Side, Site, Position Yes Yes -Correct Procedure Yes Yes -Procedure Performed Yes Yes -Type of Procedure Debridement Debridement -Clinical Debridement Subcutaneous Subcutaneous -Tissue Removed Subcutaneous Subcutaneous -Post Debridement (cm) - Length 2.5 2 -Post Debridement (cm) - Width 1.4 1 -Post Debridement (cm) - Depth 0.4 0.2 -Total Square (Post) (cm) 3.50 2 -Area of Debridement (cm) - Length 2.5 2 -Area of Debridement (cm) - Width 0.4 1 -Total Square (Area) (cm) 1.00 2 -Tunneling No No -Undermining/Tunneling No No -Circular Undermining No No -Wound/Ulcer Outcome Not Healed Not Healed -Ulcer Cleansing Rinsed/ Rinsed/ Irrigated with Irrigated with Saline Saline -Foul Odor after Cleansing No No -Bioengineered Tissue No No -Bleeding Controlled with Pressure Pressure -Offloading No -Treatment Response Procedure Procedure Tolerated Well Tolerated Well -Debridement - Subq, 1st 20sq cm No No Pain Scale: 0-10 Numeric Is Patient Pain Free? No Yes - Nurse 3 - General Ulcer D/C NN Start: 10/20/20 08:44 Freq: Status: Active Protocol: Activity Type Activity Date Activity User E-Sign Co-Sign Detail Recorded Client Recorded Date Recorded By Document 10/20/20 09:46 DL [id number] 10/20/20 09:48 DL Document 10/27/20 10:33 KR [id number] 10/27/20 10:33 KR 10/20/20 10/27/20 09:46 10:33 Wound Care Nurse 3 #2 R Med Wrist -Ulcer Cleansing Wound Cleanser -Foul Odor after Cleansing No -Primary Dressing Applied Aquacel AG 4x4 Promogran Teagan Matter -Primary Dressing Covered/Secured with Dry Gauze & Dry Gauze, Roll Gauze, Secured with Secured with Tape Tape -Aquacel AG 4x4 1 -Promogran Teagan Matter 1 #1 R. lat wrist -Ulcer Cleansing Wound Cleanser -Foul Odor after Cleansing No -Other Dressing aqaucel ag -Primary Dressing Covered/Secured with Dry Gauze & Roll Gauze, Secured with Tape Treatment Response Procedure Tolerated Well Pain Scale: 0-10 Numeric Is Patient Pain Free? Yes Yes WC - Visit Discharge Discharge Condition Stable Stable Ambulatory Status Ambulatory Ambulatory Transportation Private Auto Private Auto Notes: [facility] Wound debrided: Radial dorsal wound Laterality: Right Type of Debridement: Excisional debridement Anesthesia Used: 5% Lidocaine Gel Depth: Down to and including healthy tissue and in the subcutaneous layer Instrument Used: 3mm curette Tissue Removed: Subcutaneous tissue and slough Severity: Fat Layer Exposed Amount of bleeding with debridement: Mild Bleeding Controlled with: Pressure Patient tolerated procedure: Patient tolerated procedure well Additional Wound Wound debrided: Ulna wound Laterality: Right Type of Debridement: Excisional debridement Anesthesia Used: 5% Lidocaine Gel Depth: Down to and including healthy tissue and in the subcutaneous layer Percentage of wound debrided: 100 Instrument Used: 3mm curette Tissue Removed: Subcutaneous tissue and slough Severity: Fat Layer Exposed Amount of bleeding with debridement: Mild Bleeding Controlled with: Pressure Patient tolerated procedure: Patient tolerated procedure well Assessment/Plan Assessment/Plan (1) Open wound of right forearm due to cat bite: CODE(S): S51.851A - Open bite of right forearm, initial encounter; W55. 01XA - Bitten by cat, initial encounter (2) Extensor tenosynovitis of right wrist: CODE(S): M65.831 - Other synovitis and tenosynovitis, right forearm (3) Infected cat bite: CODE(S): W55.01XA - Bitten by cat, initial encounter QUALIFIERS: Encounter type: subsequent encounter Qualified Code(s): W55.01XD - Bitten by cat, subsequent encounter (4) Tobacco use: CODE(S): Z72.0 - Tobacco use PLAN: Wound care - Will hold Wound VAC to both wounds at 150 mmHg for 1 week. She will apply Teagan covered by gauze daily to both the right radial and ulnar wounds. She is to continue the Augmentin antibiotic. Encouraged movement of her fingers and wrist. Demonstrated with her what she needs to do, including passive range of motion to keep fingers and knuckles from becoming stiff. If she continues to have pain and stiffness we will order occupational therapy. Encouraged increase in protein intake to help with wound healing. Encouraged patient to stop smoking as it may have deleterious effects on wound healing. Follow up one week
== END 2020-11-01 23:59 ==
LOC: WC 09:30
PROVIDERS: PCP Family Medicine; Visit Provider Nurse Practitioner Family
DX: S51.851A Open bite of right forearm, initial encounter (principal); L08.9 Local infection of the skin and subcutaneous tissue, unspecified; M65.831 Other synovitis and tenosynovitis, right forearm; W55.01XA Bitten by cat, initial encounter; Y93.9 Activity, unspecified; Y92.9 Unspecified place or not applicable; Y99.9 Unspecified external cause status; E66.9 Obesity, unspecified; Z68.33 Body mass index [BMI] 33.0-33.9, adult; F17.210 Nicotine dependence, cigarettes, uncomplicated
CPT/HCPCS: 11042; 99213; G0463

== ENCOUNTER 2020-11-24 11:30 | Outpatient (RCR) | payer OTHER, SELFPAY ==
[2020-11-02 00:39] VITALS: BP 143/78; PULSE 91; RESP 18; TEMP 36.4
[2020-11-03 09:54] VITALS: BP 134/71; PULSE 82; TEMP 36.1; BMI 33.7
--- NOTE | 2020-11-03 13:14 | PCM.WC.PN ---
History of Present Illness Date of Service: 11/03/20 Chief Complaint: Surgical wound of right forearm from a cat bite History of Wound: The patient is a 50 year old woman who was admitted for a worsening cat bite right forearm that she sustained on 10/12/20. It is her own cat which is an indoor cat. Initially she went to Urgent Care and Augmentin was prescribed. She noticed increasing pain, and redness, and swelling over the next 24 hours which prompted her visit to the ED for failed outpatient therapy. She was admitted and started on Unasyn. Her WBC was 11.9. She had persistent pain and redness over the cat bite wounds (dorsal radial aspect and dorsal ulnar aspect mid right forearm). Surgery 10/15/20 - 1. Surgical preparation dorsal radial aspect and dorsal ulnar aspect mid right forearm with incision and drainage and excisional debridement cat bite wounds infection abscess. 2. Extensor tenosynovectomy for tenosynovitis compartment I distal right forearm at wrist (abductor pollicis longus tendon and extensor pollicis brevis tendon). She was discharged home on 10/17/20 with a wound VAC at 150 mmHg. Wound care? Discontinued VAC. Stop Teagan due to insurance issues and start Aquacel-Ag cover with gauze daily. Operative cultures were negative for bacterial growth. She is currently taking Augmentin. Today she denies fever or nausea. She states she has a good appetite. Progress of Wound: Improved. Objective Data Objective Data Vital Signs: Vital Signs Temp Pulse Resp BP 96.9 F L 82 18 134/71 H 11/03/20 09:54 11/03/20 09:54 11/02/20 00:39 11/03/20 09:54 Weight: 234 lb 14.107 oz Body Mass Index (BMI) 33.7 Charges/Coding Procedures Integumentary 111xxx-113xx: 58450 Global Visit Physical Exam Const alert and oriented x3 General Appearance: cooperative HEENT normocephalic Eyes PERRL Lymph Lymphatic: no lymphedema noted Resp normal respiratory effort Cardio regular rate GI non-tender Palpation: soft Extremity normal capillary refill Extremity Narrative: Difficulty moving right thumb. She can move thumb side to side but unable to move it up and down. She is able to touch thumb to each finger. She is able to make a weak fist. Skin Wound Narrative: Right dorsal ulna and radial wounds are pink and smaller in size and depth. 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 Any new allergies or adverse reactions No Had a fall/change in ADL's that may No increase risk of falls Signs or symptoms of abuse and/or No neglect since last visit Have you been in the hospital since your No last visit? Has dressing in place as prescribed Yes Has compression in place as prescribed N/A Has offloadiing in place as prescribed N/A Experienced any changes in pain level or No management Left Footwear Regular Shoe Right Footwear Regular Shoe Pain Scale: 0-10 Numeric Is Patient Pain Free? Yes - Nurse 1 - General Ulcer Measurement Start: 11/03/20 09:53 Freq: Status: Active Protocol: Activity Type Activity Date Activity User E-Sign Co-Sign Detail Recorded Client Recorded Date Recorded By Document 11/03/20 09:54 DOV [id number] 11/03/20 10:02 DOV 11/03/20 09:54 Wound Center Nurse 1 #2 R Med Wrist -Current Size (cm) - Length 2 -Current Size (cm) - Width 2.0 -Current Size (cm) - Depth 0.2 -Total Square Cm 4.0 -Exudate Amt Medium -Exudate Type Serosanguineous -Wound Margin Distinct, Outline Attached -Granulation Amt Medium (34-66%) -Granulation Quality Red -Necrosis Amt Medium (34-66%) -Necrotic Tissue Type Adherent Slough -Texture (Violetta-wound Skin Appearance) Assessed, Scarring -Moisture (Violetta-wound Skin Appearance) No Abnormality, Assessed -Color (Violetta-wound Skin Appearance) No Abnormality, Assessed -Temperature (Violetta-wound Skin No Abnormality Appearance) (Pt Warm) -Tenderness on Palpation (Violetta-wound No Skin Appearance) -Ulcer Cleansing Rinsed/ Irrigated with Saline -Foul Odor after Cleansing No -Anesthetic Used 5% Lidocaine Gel #1 R. lat wrist -Current Size (cm) - Length 1.8 -Current Size (cm) - Width 1.6 -Current Size (cm) - Depth 0.2 -Total Square Cm 2.88 -Exudate Amt Medium -Exudate Type Serosanguineous -Wound Margin Distinct, Outline Attached -Granulation Amt Medium (34-66%) -Granulation Quality Red -Necrosis Amt Medium (34-66%) -Necrotic Tissue Type Adherent Slough -Texture (Violetta-wound Skin Appearance) Assessed, Scarring -Moisture (Violetta-wound Skin Appearance) No Abnormality, Assessed -Color (Violetta-wound Skin Appearance) No Abnormality, Assessed -Temperature (Violetta-wound Skin No Abnormality Appearance) (Pt Warm) -Tenderness on Palpation (Violetta-wound No Skin Appearance) -Ulcer Cleansing Rinsed/ Irrigated with Saline -Foul Odor after Cleansing No -Anesthetic Used 5% Lidocaine Gel WC - Nurse 2 - General Ulcer CM Notes Start: 11/03/20 09:53 Freq: Status: Active Protocol: Activity Type Activity Date Activity User E-Sign Co-Sign Detail Recorded Client Recorded Date Recorded By Document 11/03/20 10:25 LEILANI [id number] 11/03/20 10:33 LEILANI 11/03/20 10:25 Wound Center Nurse 2 #2 R Med Wrist -Time 10:32 -Correct Patient Yes -Correct Side, Site, Position Yes -Correct Procedure Yes -Procedure Performed Yes -Type of Procedure Debridement -Clinical Debridement Subcutaneous -Tissue Removed Subcutaneous -Post Debridement (cm) - Length 2.4 -Post Debridement (cm) - Width 1.8 -Post Debridement (cm) - Depth 0.3 -Total Square (Post) (cm) 4.32 -Area of Debridement (cm) - Length 2.4 -Area of Debridement (cm) - Width 1.8 -Total Square (Area) (cm) 4.32 -Tunneling No -Circular Undermining No -Wound/Ulcer Outcome Not Healed -Ulcer Cleansing Rinsed/ Irrigated with Saline -Foul Odor after Cleansing No -Bioengineered Tissue No -Bleeding Controlled with Pressure -Offloading No -Treatment Response Procedure Tolerated Well -Debridement - Subq, 1st 20sq cm Yes #1 R. lat wrist -Time 10:32 -Correct Patient Yes -Correct Side, Site, Position Yes -Correct Procedure Yes -Procedure Performed Yes -Type of Procedure Incision & Drainage -Clinical Debridement Subcutaneous -Tissue Removed Muscle -Post Debridement (cm) - Length 1.5 -Post Debridement (cm) - Width 0.9 -Post Debridement (cm) - Depth 0.3 -Total Square (Post) (cm) 1.35 -Area of Debridement (cm) - Length 1.5 -Area of Debridement (cm) - Width 0.9 -Total Square (Area) (cm) 1.35 -Tunneling No -Undermining/Tunneling No -Circular Undermining No -Wound/Ulcer Outcome Not Healed -Ulcer Cleansing Rinsed/ Irrigated with Saline -Foul Odor after Cleansing No -Bioengineered Tissue No -Bleeding Controlled with Pressure -Offloading No -Treatment Response Procedure Tolerated Well -Debridement - Subq, 1st 20sq cm No Pain Scale: 0-10 Numeric Is Patient Pain Free? Yes - Nurse 3 - General Ulcer D/C NN Start: 11/03/20 09:53 Freq: Status: Active Protocol: Activity Type Activity Date Activity User E-Sign Co-Sign Detail Recorded Client Recorded Date Recorded By Document 11/03/20 10:53 PALOMO [id number] 11/03/20 10:55 PALOMO 11/03/20 10:53 Wound Care Nurse 3 #2 R Med Wrist -Ulcer Cleansing Rinsed/ Irrigated with Saline -Foul Odor after Cleansing No -Primary Dressing Covered/Secured with Dry Gauze, Secured with Tape -Aquacel AG 4x4 1 #1 R. lat wrist -Ulcer Cleansing Rinsed/ Irrigated with Saline -Foul Odor after Cleansing No -Primary Dressing Applied Aquacel AG 4x4 -Aquacel AG 4x4 0 WC - Visit Discharge Discharge Condition Stable Ambulatory Status Ambulatory, Steady Transportation Private Auto Clinical Summary of Care Provided Yes Wound debrided: dorsal ulna (lateral) wound Laterality: Right Type of Debridement: Excisional debridement Depth: Down to and including healthy tissue and in the subcutaneous layer Percentage of wound debrided: 100 Instrument Used: 3mm curette Tissue Removed: Subcutaneous tissue and slough Severity: Fat Layer Exposed Amount of bleeding with debridement: Mild Bleeding Controlled with: Pressure Additional Wound Wound debrided: Dorsal radial wound (medial) Laterality: Right Type of Debridement: Excisional debridement Anesthesia Used: 5% Lidocaine Gel Depth: Down to and including healthy tissue Percentage of wound debrided: 100 Instrument Used: 3mm curette Tissue Removed: Subcutaneous tissue and slough Severity: Limited To Skin Breakdown Bleeding Controlled with: Pressure Patient tolerated procedure: Patient tolerated procedure well Assessment/Plan Assessment/Plan (1) Open wound of right forearm due to cat bite: CODE(S): S51.851A - Open bite of right forearm, initial encounter; W55.01XA - Bitten by cat, initial encounter (2) Extensor tenosynovitis of right wrist: CODE(S): M65.831 - Other synovitis and tenosynovitis, right forearm (3) Infected cat bite: CODE(S): W55.01XA - Bitten by cat, initial encounter QUALIFIERS: Encounter type: subsequent encounter Qualified Code(s): W55.01XD - Bitten by cat, subsequent encounter (4) Tobacco use: CODE(S): Z72.0 - Tobacco use PLAN: Wound care - Discontinue the wound VAC. Teagan is not covered by her insurance. Start Aquacel silver covered by gauze daily to both the right radial and ulnar wounds. Wear an Abran wrap for compression. She is to continue the Augmentin antibiotic. Encouraged movement of her fingers and wrist. Demonstrated with her what she needs to do, including passive range of motion to keep fingers and knuckles from becoming stiff. If she continues to have pain and stiffness we will order occupational therapy. She is complaining of arm pain and fullness. She states that this discomfort is new and different than her normal pain. We will order an ultrasound to rule out a DVT. Encouraged increase in protein intake to help with wound healing. Encouraged patient to stop smoking as it may have deleterious effects on wound healing. Follow up one week
--- NOTE | 2020-11-04 09:01 | VDUE_ITS ---
Reason For Study: Rt upper arm pain Right Proximal Right jugular vein is spontaneous, widely patent, phasic, with no intraluminal echogenicity noted. Right subclavian vein is spontaneous, widely patent, phasic, with no intraluminal echogenicity noted. Right Lower Arm Right radial vein is compressible. Right ulnar vein is compressible. Right Arm Right axillary vein is spontaneous, patent, phasic, competent, compressible and demonstrates augmentation. Right brachial vein is compressible. Right cephalic vein is compressible. Right basilic vein is compressible. Patient Safety Prelim to Arleen. VL/Venous Duplex US, Unilateral Interpretation Summary Deep veins of the right upper extremity are patent and compressible segmentally . There is no evidence of deep vein thrombosis. The superficial veins of the right upper extr emity, the basilic and cephalic veins, are patent and compressible. There is no evidence of right upper extremity superficial thrombophlebitis involving the veins imaged. Ordering Physician: Doreen Bacon Referring Physician: Ruben Vasques Performed By: Madonna Sutherland RVT ?
[2020-11-24 11:35] VITALS: BP 140/62; PULSE 88; RESP 16; TEMP 36.6; BMI 33.7
--- NOTE | 2020-11-24 12:06 | PN.PCM_ITS ---
History of Present Illness Date of Service: 11/24/20 Chief Complaint: Surgical wound of right forearm from a cat bite History of Wound: The patient is a 50 year old woman who was admitted for a worsening cat bite right forearm that she sustained on 10/12/20. It is her own cat which is an indoor cat. Initially she went to Urgent Care and Augmentin was prescribed. She noticed increasing pain, and redness, and swelling over the next 24 hours which prompted her visit to the ED for failed o utpatient therapy. She was admitted and started on Unasyn. Her WBC was 11.9. She had persistent pain and redness over the cat bite wounds (dorsal radial aspect and dorsal ulnar aspect mid right forearm). Surgery 10/15/20 - 1. Surgical preparation dorsal radial aspect and dorsal ulnar aspect mid right forearm with incision and drainage and excisional debridement cat bite wounds infection abscess. 2. Extensor tenosynovectomy for tenosynovitis compartment I distal right forearm at wrist (abductor pollicis longus tendon and extensor pollicis brevis tendon). She was discharged home on 10/17/20 with a wound VAC at 150 mmHg. Wound care? Discontinued VAC. Stop Teagan due to insurance issues and start Aquacel-Ag cover with gauze daily. Operative cultures were negative for bacterial growth. She is currently taking Augmentin. Today she denies fever or nausea. She states she has a good appetite. Progress of Wound: Healed. Objective Data Objective Data Vital Signs: Vital Signs Temp Pulse Resp BP 97.9 F 88 16 140/62 H 11/24/20 11:35 11/24/20 11:35 11/24/20 11:35 11/24/20 11:35 Oxygen Delivery Method Room Air Weight: 234 lb 14.107 oz Body Mass Index (BMI) 33.7 Charges/Coding Procedures Integumentary 111xxx-113xx: [id number] Global Visit Physical Exam Const alert and oriented x3 General Appearance: cooperative HEENT normocephalic Resp normal respiratory effort Cardio regular rate GI Palpation: soft Extremity Extremity Narrative: Right arm with +1 edema. Right hand grasp weaker than left hand. Able to touch thumb to each finger tip of right hand. Decreased range of motion of right wrist. General Extremity: edema Skin Wound Narrative: Right medial and lateral wrist are healed. Debridement Note Debridement Note No debridement was completed: No debridement was completed today Assessment/Plan Assessment/Plan (1) Open wound of right forearm due to cat bite: CODE(S): S51.851A - Open bite of right forearm, initial encounter; W55.01XA - Bitten by cat, initial encounter (2) Extensor tenosynovitis of right wrist: CODE(S): M65.831 - Other synovitis and tenosynovitis, right forearm (3) Infected cat bite: CODE(S): W55.01XA - Bitten by cat, initial encounter QUALIFIERS: Encounter type: subsequent encounter Qualified Code(s): W55.01XD - Bitten by cat, subsequent encounter (4) Tobacco use: CODE(S): Z72.0 - Tobacco use PLAN: She is healed. Encouraged to massage the scarring with lotion 1-2 times daily to help soften scarring. Continue to wear an Abran wrap for compression. She completed the Augmentin antibiotic. Encouraged movement of her fingers and wrist. Demonstrated with her what she needs to do, including passive range of motion to keep fingers and knuckles from becoming stiff. If she continues to have pain and stiffness we will order occupational therapy. Ultrasound on 11/04/20 of her right arm was negative for DVT. Continue occupational therapy to improve strength and range of motion and pain management. Encouraged patient to stop smoking as it may have deleterious effects on wound healing. Follow up as needed.
== END 2020-11-24 11:52 | disposition home or self-care (01) ==
LOC: WC 11:30
PROVIDERS: PCP Family Medicine; Referring Provider Nurse Practitioner Family; Visit Provider Nurse Practitioner Family
DX: S51.851S Open bite of right forearm, sequela (principal); W55.01XS Bitten by cat, sequela; M65.831 Other synovitis and tenosynovitis, right forearm; M79.621 Pain in right upper arm; E66.9 Obesity, unspecified; Z68.33 Body mass index [BMI] 33.0-33.9, adult; Z72.0 Tobacco use
CPT/HCPCS: 11042; 93971; 99213; G0463